=== PATIENT | male | born 1980 | race Caucasian/White ===

== ENCOUNTER → 2016-06-22 | Outpatient (CLI) | payer OTHER ==
--- NOTE | 2016-06-22 16:04 | REP ---
Clinical: Pain . Technique: AP, lateral, bilateral oblique views of the right elbow. Findings: No acute fracture or dislocation is appreciated. Joint spaces and surrounding soft tissues appear normal. Lateral view demonstrates normal positioning to the anterior and posterior fat pads without evidence for effusion/hemarthrosis. No subcutaneous emphysema or foreign body identified. Impression: Normal right elbow radiographs. Signed by Jose Maria Chatman MD 06/22/2016 03:56 P
== END ==
LOC: M ADAMS 15:37
PROVIDERS: ATTEND Physician Assistant
DX: M25.521 Pain in right elbow (principal)

== ENCOUNTER → 2016-12-08 | Outpatient (CLI) | payer OTHER ==
--- NOTE | 2016-12-08 09:14 | REP ---
Clinical: Right shoulder pain. Technique: Internal rotation, external rotation, and Y view. Findings: Mild age-related changes at the acromioclavicular joint are appreciated. There appears to be a subtle subacute fracture of the mid clavicular shaft which requires correlation. The glenohumeral joint appears intact and normal. The subacromial space is normal. No periarticular calcifications are identified. Impression: 1. Nondisplaced fracture of the mid clavicular shaft of indeterminate age requires correlation and possibly related to patient's pain. 2. Mild degenerative changes at the acromioclavicular joint. Signed by Jose Maria Chatman MD 12/08/2016 09:06 A
--- NOTE | 2016-12-08 09:18 | REP ---
Clinical: Cervical. Technique: AP lateral open mouth views of the cervical spine. Findings: Alignment and lordosis maintained. No acute fracture / compression injury or subluxation. Age-related changes are appreciated without significant degenerative disc osteophyte complex by radiographic evaluation. Impression: Relatively normal, age-appropriate examination. If the patient remains symptomatic consider MRI for further investigation. Signed by Jose Maria Chatman MD 12/08/2016 09:10 A
== END ==
LOC: M ADAMS 08:36
PROVIDERS: ATTEND Physician Assistant Medical
DX: S42.024A Nondisplaced fracture of shaft of right clavicle, initial encounter for closed fracture (principal); X58.XXXA Exposure to other specified factors, initial encounter; Y93.9 Activity, unspecified; Y92.9 Unspecified place or not applicable; Y99.8 Other external cause status; M54.2 Cervicalgia

== ENCOUNTER → 2018-02-18 | Outpatient (CLI) | payer OTHER | LOC: M RAD 12:13 | DX: L03.311 Cellulitis of abdominal wall (principal) | CPT/HCPCS: 76705 ==

== ENCOUNTER → 2018-04-12 | Outpatient (CLI) | payer OTHER ==
[2018-04-12 12:57] LABS: HEMATOCRIT 43.8 % (42.0-52.0); HEMOGLOBIN 14.6 g/dl (13.5-17.5); MEAN CORPUSCULAR HEMOGLOBIN 30.2 pg (27.0-33.0); MEAN CORPUSCULAR HGB CONC 33.3 g/dl (32.0-36.5); MEAN CORPUSCULAR VOLUME 90.5 fl (80.0-96.0); PLATELET COUNT, AUTOMATED 301 10^3/uL (150-450); RED BLOOD COUNT 4.84 10^6/uL (4.30-6.10); WHITE BLOOD COUNT 6.8 10^3/uL (4.0-10.0)
[2018-04-12 13:45] LABS: ALBUMIN 4.1 GM/DL (3.2-5.2); ALT/SGPT 64 U/L (12-78); BILIRUBIN,TOTAL 0.9 MG/DL (0.2-1.0); BLOOD UREA NITROGEN 13 MG/DL (7-18); CALCIUM LEVEL 9.4 MG/DL (8.5-10.1); CARBON DIOXIDE LEVEL 25 MEQ/L (21-32); CHLORIDE LEVEL 104 MEQ/L (98-107); CREATININE FOR GFR 0.95 MG/DL (0.70-1.30); GLOMERULAR FILTRATION RATE > 60.0 (>60); GLUCOSE, FASTING 90 MG/DL (70-100); POTASSIUM SERUM 4.7 MEQ/L (3.5-5.1); SODIUM LEVEL 138 MEQ/L (136-145); TOTAL PROTEIN 7.3 GM/DL (6.4-8.2)
== END ==
LOC: M LABDRWAD 10:49
PROVIDERS: ATTEND Nurse Practitioner Family
DX: F34.1 Dysthymic disorder (principal)

== ENCOUNTER → 2019-01-16 | Outpatient (CLI) | payer OTHER ==
--- NOTE | 2019-01-16 11:27 | REP ---
Two-view chest: 01/16/2019. Indication: Cough. Comparison: None. Findings: The lungs are clear. There is no pleural effusion or pneumothorax. Cardiac silhouette is unremarkable. Impression: Clear lungs. Electronically Signed by Mahamed Orellana DO 01/16/2019 11:18 A
== END ==
LOC: M ADAMS 09:26
PROVIDERS: ATTEND Family Medicine
DX: R05 Cough (principal)

== ENCOUNTER → 2019-02-22 | Outpatient (REF) | payer OTHER ==
[2019-02-22 12:26] LABS: BLOOD UREA NITROGEN 12 MG/DL (7-18); CARBON DIOXIDE LEVEL 27 MEQ/L (21-32); CHLORIDE LEVEL 108 MEQ/L (98-107); CREATININE FOR GFR 0.89 MG/DL (0.70-1.30); GLOMERULAR FILTRATION RATE > 60.0 (>60); GLUCOSE, FASTING 87 MG/DL (70-100); MAGNESIUM LEVEL 2.2 MG/DL (1.8-2.4); POTASSIUM SERUM 4.3 MEQ/L (3.5-5.1); SODIUM LEVEL 141 MEQ/L (136-145)
== END ==
LOC: M SFHCPLAZ 08:35
PROVIDERS: ATTEND Physician Assistant
DX: M62.838 Other muscle spasm (principal)

== ENCOUNTER 2020-01-29 12:24 | Inpatient (IN) | payer MEDICAID, OTHER ==
[~2020-01-29] VITALS: Ht 185.4 cm; Wt 135.2 kg
[2020-01-29] MEDS ORDERED: VENTAER INH (12:35)
[2020-01-29] MEDS ORDERED: SERT-138 PO (12:35)
[2020-01-29] MEDS ORDERED: OMEP-221 PO (12:35)
[2020-01-29 13:39] LABS: HEMATOCRIT 42.4 % (42.0-52.0); HEMOGLOBIN 13.9 g/dl (13.5-17.5); MEAN CORPUSCULAR HEMOGLOBIN 31.3 pg (27.0-33.0); MEAN CORPUSCULAR HGB CONC 32.8 g/dl (32.0-36.5); MEAN CORPUSCULAR VOLUME 95.5 fl (80.0-96.0); PLATELET COUNT, AUTOMATED 289 10^3/uL (150-450); RED BLOOD COUNT 4.44 10^6/uL (4.30-6.10); WHITE BLOOD COUNT 8.8 10^3/uL (4.0-10.0)
[2020-01-29 15:38] LABS: ACETAMINOPHEN LEVEL < 2.0 UG/ML (10.0-30.0); ALBUMIN 4.2 GM/DL (3.2-5.2); ALT/SGPT 116 U/L (12-78); BILIRUBIN,DIRECT 0.1 MG/DL (0.0-0.2); BILIRUBIN,TOTAL 0.5 MG/DL (0.2-1.0); BLOOD UREA NITROGEN 17 MG/DL (7-18); CALCIUM LEVEL 9.3 MG/DL (8.5-10.1); CARBON DIOXIDE LEVEL 23 MEQ/L (21-32); CHLORIDE LEVEL 111 MEQ/L (98-107); CREATININE FOR GFR 0.96 MG/DL (0.70-1.30); ETHYL ALCOHOL (ETHANOL) < 0.003 % (0.000-0.010); GLOMERULAR FILTRATION RATE > 60.0 (>60); GLUCOSE, FASTING 166 MG/DL (70-100); POTASSIUM SERUM 3.7 MEQ/L (3.5-5.1); SALICYLATE LEVEL 3.1 MG/DL (5.0-30.0); SODIUM LEVEL 142 MEQ/L (136-145); THYROID STIMULATING HORMONE 0.814 uIU/ML (0.358-3.740); TOTAL PROTEIN 7.6 GM/DL (6.4-8.2)
[2020-01-29 16:13] LABS: AMPHETAMINES LEVEL URINE NEGATIVE (NEGATIVE); BARBITURATES URINE NEGATIVE (NEGATIVE); BENZODIAZEPINES URINE NEGATIVE (NEGATIVE); CANNABINOIDS URINE POSITIVE (NEGATIVE); COCAINE METABOLITE URINE NEGATIVE (NEGATIVE); METHADONE URINE NEGATIVE (NEGATIVE); OPIATES URINE NEGATIVE (NEGATIVE); PHENCYCLIDINE URINE NEGATIVE (NEGATIVE)
[2020-01-29] MEDS ORDERED: OLANZapine ORAL DISINTEGRATING TAB 5MG PO PRN (18:00)
[2020-01-29] MEDS ORDERED: ACETAMINOPHEN TAB 650MG DOSE (2X325MG) PO PRN (18:00)
[2020-01-29] MEDS ORDERED: MOM 30ML SUSPENSION UDC PO PRN (18:00)
[2020-01-29] MEDS ORDERED: ALBUTEROL 90 MCG/ACT 8GM HFA INHALER INH PRN (18:00)
[2020-01-29] MEDS ORDERED: MAALOX 30 ML SUSP *UDC PO PRN (18:00)
[2020-01-29] MEDS ORDERED: traZODone 50 MG TAB PO PRN (18:00)
--- NOTE | 2020-01-29 19:45 | ECGEPIP ---
[facility] - ED Test Date: 2020-01-29 Pat Name: MISBAH GARRIDO Department: Room: - Gender: Male Business Management Analyst: SAIRA : 1980 Requested By: Michelle Cleaning Order Number: [id number] Reading MD: Kenyatta Machado Measurements Intervals [place] Rate: 88 P: 56 TX: 152 QRS: 19 QRSD: 97 T: 21 QT: 356 QTc: 432 Interpretive Statements SINUS RHYTHM WITH SINUS ARRHYTHMIA NO PRIOR Electronically Signed on 01-29-2020 19:44:52 EST by Kenyatta Machado
[2020-01-29 21:49] VITALS: BP 170/120
[2020-01-29] MEDS ORDERED: **hydrALAZINE** 10 MG TAB PO STA (22:21)
[2020-01-29 23:01] VITALS: BP 178/116
[2020-01-29] MEDS ORDERED: OLAN5ZYD PO (23:23)
[2020-01-29] MEDS ORDERED: AMLO25TA PO (23:23)
[2020-01-29] MEDS ORDERED: LISI2.5T2 PO (23:23)
[2020-01-29] MEDS ORDERED: LISINOPRIL *2.5 MG* TAB PO SCH (23:30)
[2020-01-29 23:43] VITALS: BP 162/96
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
[2020-01-30] MEDS ORDERED: SERTRALINE 100 MG TAB PO SCH (09:00)
[2020-01-30] MEDS ORDERED: NICOTINE 21MG/24HR 1 EA TRANSDERMAL TD SCH (09:00)
[2020-01-30] MEDS ORDERED: NORV5TAB PO (16:30)
[2020-01-30] MEDS ORDERED: LISI-542 PO (16:30)
[2020-01-30] MEDS ORDERED: LISINOPRIL *2.5 MG* TAB PO SCH (21:00)
== END 2020-01-29 23:55 | disposition other institution (70) | DRG 751 ==
LOC: M ED 12:24 → M ED INP 17:47 → M PSY 21:40
PROVIDERS: ADMIT Psychiatry & Neurology Psychiatry; ATTEND Psychiatry & Neurology Psychiatry
DX: F29 Unspecified psychosis not due to a substance or known physiological condition (principal); F31.9 Bipolar disorder, unspecified; F17.210 Nicotine dependence, cigarettes, uncomplicated; F17.220 Nicotine dependence, chewing tobacco, uncomplicated; Z79.899 Other long term (current) drug therapy; Z91.018 Allergy to other foods; R03.0 Elevated blood-pressure reading, without diagnosis of hypertension

== ENCOUNTER 2020-01-29 22:56 | Observation (INO) | payer OTHER ==
[~2020-01-29] VITALS: Ht 185.4 cm; Wt 134.5 kg
[~2020-01-29 22:56] MED LIST: OMEP-221 PO; SERT-138 PO; VENTAER INH
--- NOTE | 2020-01-29 23:22 | HPEPDOC ---
[facility] Medical History & Physical Date of Admission Jan 29, 2020 Date of Service: Jan 29, 2020 Primary Care Physician: NIKITA NEELY PA-C Attending Physician: BERENICE BELTRAN MD History and Physical TIME OF SERVICE: 1055 PM REASON FOR CONSULT: Elevated blood pressure HISTORY OF PRESENT ILLNESS: This 39-year-old old gentleman presented to the ER yesterday requesting admission to [facility] to help him deal with his anger issues. This evening he was noted to have a blood pressure as high as 195/95 & 170/120 this evening, therefore, Dr. Lawler called requesting management of uncontrolled HTN. At the time of my evaluation, the patient denied having any chest pain, shortness of breath, dizziness, headaches, or any other acute complaints. He denied a prior knowledge of the diagnosis of hypertension but based on his recent office visit he was noted to have HTN. The patient felt that his HTN might be due to nicotine abuse, feeling angry, and gaining weight. Over the last few years, has gained over 120 pounds. REVIEW OF SYSTEMS: 12 point review of systems negative except as listed in HPI PAST MEDICAL/ SURGICAL HISTORY: Bipolar Disorder HTN DLPD Asthma Chronic back pain with history of nerve blocks Left knee arthroscopy SOCIAL HISTORY: He smokes tobacco products and uses THC products Hs hx of alcohol abuse drinks 3+ beers daily FAMILY HISTORY: Cancer Diabetes ALLERGIES: Please see below. HOME MEDICATIONS: Please see below. PHYSICAL EXAMINATION: Vital Signs Date Time Temp Pulse Resp B/P (MAP) Pulse Ox O2 Delivery O2 Flow Rate FiO2 01/30/20 00:00 97.2 97 18 152/90 (110) 97 Room Air GEN: obese / well developed/ NAD INTEGUMENT: not flushed/ not jaundice HEENT: lips acyanotic /mucus membranes moist and pink CVS: RRR/NMRG/ radial and dorsalis pedis pulses intact LUNGS: able to speak full sentences without stopping to take a breath / no coughing / lungs are clear to auscultation bilaterally on room air MSK/EXTREMITIES: NCAT / range of motion intact in all 4 extremities NEURO: CN 2-12 are grossly intact / speech is not dysarthric /gait normal PSYCH: alert and oriented to person place and time/ able to understand and follow all commands LABORATORY DATA: UDS taken in the ER was positive for THC 01/30/20 00:40 ASSESSMENT: is a 39-year-old with a history of bipolar disorder w depression, HTN, DLPD, asthma, will be transferred from [facility] to PCU for management of hypertensive urgency. PLAN: 1 .Hypertensive Urgency SBP 195 DPB 120 He received hydralazine, lisinopril and amlodipine in [facility] prior to transfer Plan: Despite being asymptomatic, I felt that the safest plan would be to transfer him to PCU for closer monitoring / amlodipine 2.5mg and lisinopril 2.5mg PO will aim for e first 2-4 hours with target BP of <160/100 / low salt diet / discussed the importance of cardiovascular exercise and calisthenics which will help him loose weigth and control his blood pressure / f/u CBC, CMP, UA, trop and EKG / he should f/u with his PCP for a work-up to r/o secondary causes of HTN and for sleep apnea screening 2. NN Anemia Plan: f/u retic #, Iron studies, B12 and folate 3. Transaminitis Plan: f/u Hep B&C / can f/u with PCP for liver US 4. DLP Plan: f/u lipid panel 5. Asthma Plan; albuterol PRN 6. Bipolar Disorder with MDD Plan: 1:1 sitter / sertraline and olanzapine 7. Tobacco abuse Plan: smoking cessation education 8. Alcohol abuse Plan: seizure precautions / fall precautions / Ativan per CIWA protocol/ Thi amine 100mg daily, Folic acid 1mg daily, MVI 9.Obesity BMI 39.1 complicates care Plan: f/u A1C, lipid panel / can f/u w PCP for sleep apnea screening DVT PROPHYLAXIS: SCDs DISPOSITION: back to [facility] after less than 2 midnight's stay Home Medications Scheduled Amlodipine Besylate (Norvasc) 5 Mg Tablet, 5 MG PO DAILY Lisinopril (Lisinopril) 5 Mg Tablet, 5 MG PO QAM Omeprazole (Omeprazole) 40 Mg Capsule.dr, 40 MG PO DAILY Sertraline HCl (Sertraline HCl) 100 Mg Tablet, 100 MG PO DAILY Scheduled PRN Albuterol Sulfate (Ventolin Hfa) 18 Gm Hfa.aer.ad, 2 PUFFS INH Q4H PRN for SHORTNESS OF BREATH Olanzapine (Olanzapine Odt) 5 Mg Tab.rapdis, 5 MG PO Q6HP PRN for ANXIETY/AGITATION Allergies Coded Allergies: Mushroom (Verified Allergy, Mild, rash, 01/29/20) A-FIB/CHADSVASC A-FIB History Current/History of A-Fib/PAF?: No Current PO Anticoag Therapy: BERENICE Araya MD Jan 29, 2020 23:22
[2020-01-29] MEDS ORDERED: OLAN5ZYD PO (23:23)
[2020-01-29] MEDS ORDERED: AMLO25TA PO (23:23)
[2020-01-29] MEDS ORDERED: LISI2.5T2 PO (23:23)
[2020-01-29] MEDS ORDERED: MAALOX 30 ML SUSP *UDC PO PRN (23:30)
[2020-01-29] MEDS ORDERED: MOM 30ML SUSPENSION UDC PO PRN (23:30)
[2020-01-29] MEDS ORDERED: ACETAMINOPHEN TAB 650MG DOSE (2X325MG) PO PRN (23:30)
[2020-01-30] VITALS (9 sets, daily range): BP systolic 148–172; BP diastolic 77–98
[2020-01-30 00:55] LABS: HEMATOCRIT 38.9 % (42.0-52.0); HEMOGLOBIN 12.5 g/dl (13.5-17.5); MEAN CORPUSCULAR HEMOGLOBIN 30.4 pg (27.0-33.0); MEAN CORPUSCULAR HGB CONC 32.1 g/dl (32.0-36.5); MEAN CORPUSCULAR VOLUME 94.6 fl (80.0-96.0); PLATELET COUNT, AUTOMATED 245 10^3/uL (150-450); RED BLOOD COUNT 4.11 10^6/uL (4.30-6.10); WHITE BLOOD COUNT 8.3 10^3/uL (4.0-10.0)
[2020-01-30 01:19] LABS: ALBUMIN 3.6 GM/DL (3.2-5.2); ALT/SGPT 100 U/L (12-78); BILIRUBIN,TOTAL 0.6 MG/DL (0.2-1.0); BLOOD UREA NITROGEN 15 MG/DL (7-18); CALCIUM LEVEL 8.9 MG/DL (8.5-10.1); CARBON DIOXIDE LEVEL 25 MEQ/L (21-32); CHLORIDE LEVEL 108 MEQ/L (98-107); CREATININE FOR GFR 0.81 MG/DL (0.70-1.30); GLOMERULAR FILTRATION RATE > 60.0 (>60); GLUCOSE, FASTING 95 MG/DL (70-100); NT-PRO BNP 96 PG/ML (<125); POTASSIUM SERUM 3.7 MEQ/L (3.5-5.1); SODIUM LEVEL 140 MEQ/L (136-145); TOTAL PROTEIN 6.6 GM/DL (6.4-8.2); TROPONIN I < 0.02 NG/ML (< 0.10)
[2020-01-30] MEDS ORDERED: ALBUTEROL 90 MCG/ACT 8GM HFA INHALER INH PRN (05:00)
[2020-01-30] MEDS ORDERED: OLANZapine ORAL DISINTEGRATING TAB 5MG PO PRN (05:00)
[2020-01-30 05:22] LABS: CHOLESTEROL LEVEL 225 MG/DL (<200); HDL CHOLESTEROL 36 MG/DL (>40); LDL CHOLESTEROL 163 MG/DL (<100); NON-HDL-C 189 MG/DL; TRIGLYCERIDES LEVEL 132 MG/DL (<150)
[2020-01-30 05:36] LABS: HEMOGLOBIN A1c 5.8 %
[2020-01-30 05:59] LABS: FERRITIN 123 NG/ML (26-388); IRON (FE) 102 UG/DL (65-175); PERCENT SATURATION 36.7 % (19.7-50.0); TOTAL IRON BINDING CAPACITY 278 UG/DL (250-450)
[2020-01-30] MEDS ORDERED: THIAMINE 100 MG TAB PO SCH (06:49)
[2020-01-30] MEDS ORDERED: LORazepam 2 MG TAB PO PRN (07:00)
[2020-01-30] MEDS ORDERED: FOLIC ACID 1 MG TAB PO SCH (09:00)
[2020-01-30] MEDS ORDERED: MULTIVITAMINS/MINERALS THERAP 1 TAB PO SCH (09:00)
[2020-01-30] MEDS ORDERED: OMEPRAZOLE 20 MG CAP PO SCH (09:00)
[2020-01-30] MEDS ORDERED: SERTRALINE 100 MG TAB PO SCH (09:00)
[2020-01-30] MEDS ORDERED: lisinopriL 5 MG TAB PO SCH (09:00)
[2020-01-30 09:49] LABS: VITAMIN B12 LEVEL 411 PG/ML (247-911)
[2020-01-30 10:00] LABS: HEPATITIS B SURFACE ANTIGEN NEGATIVE (NEGATIVE)
[2020-01-30 10:27] LABS: HEPATITIS C VIRUS ABY INDEX 0.1 INDEX (<0.8)
[2020-01-30 10:28] LABS: HEPATITIS B CORE ANTIBODY IGM NEGATIVE (NEGATIVE)
[2020-01-30 10:29] LABS: HEPATITIS A ANTIBODY IGM NEGATIVE (NEGATIVE)
--- NOTE | 2020-01-30 14:07 | ECGEPIP ---
[facility] Test Date: 2020-01-30 Pat Name: MISBAH GARRIDO Department: Room: [place] [address] Gender: Male Career Center Director: LUCIA : 1980 Requested By: BERENICE BELTRAN Order Number: [id number] Reading MD: Alex Valdez Measurements Intervals [place] Rate: 68 P: 41 GA: 156 QRS: 27 QRSD: 98 T: 8 QT: 395 QTc: 421 Interpretive Statements SINUS RHYTHM Electronically Signed on 01-30-2020 14:06:41 EST by Alex Valdez
[2020-01-30] MEDS ORDERED: NORV5TAB PO (16:30)
[2020-01-30] MEDS ORDERED: LISI-542 PO (16:30)
--- NOTE | 2020-01-30 16:39 | DS.PDOC ---
Discharge Summary General Date of Admission Jan 29, 2020 at 23:55 Date of Discharge 01/30/20 Attending Physician: Saige Gannon MD Discharge Summary HISTORY OF PRESENT ILLNESS: This 39-year-old old gentleman presented to the ER yesterday requesting admission to [facility] to help him deal with his anger issues. This evening he was noted to have a blood pressure as high as 195/95 & 170/120 this evening, therefore, Dr. Lawler called requesting management of uncontrolled HTN. At the time of my evaluation, the patient denied having any chest pain, shortness of breath, dizziness, headaches, or any other acute complaints. He denied a prior knowledge of the diagnosis of hypertension but based on his recent office visit he was noted to have HTN. The patient felt that his HTN might be due to nicotine abuse, feeling angry, and gaining weight. Over the last few years, has gained over 120 pounds. HOSPITAL COURSE: BP meds lisinopril and amlodipine switched to AM. He was also given one time dose amlodipine later in the day for slightly higher BP systolic of 170 mmHg. psychiatry was notified of better controlled BP and cleared to be discharged back to [facility]. At time of discharge, patient denied chest pain, shortness of breath, n/v/d, fevers, chills, headaches. PAST MEDICAL/ SURGICAL HISTORY: Bipolar Disorder HTN DLPD Asthma Chronic back pain with history of nerve blocks Left knee arthroscopy SOCIAL HISTORY: He smokes tobacco products and uses THC products Hs hx of alcohol abuse drinks 3+ beers daily FAMILY HISTORY: Cancer Diabetes ALLERGIES: Please see below. HOME MEDICATIONS: Please see below. PHYSICAL EXAMINATION: Vital Signs: Please see below GEN: obese / well developed/ NAD INTEGUMENT: not flushed/ not jaundice HEENT: lips acyanotic /mucus membranes moist and pink CVS: RRR/NMRG/ radial and dorsalis pedis pulses intact LUNGS: able to speak full sentences without stopping to take a breath / no coughing / lungs are clear to auscultation bilaterally on room air MSK/EXTREMITIES: NCAT / range of motion intact in all 4 extremities NEURO: CN 2-12 are grossly intact / speech is not dysarthric /gait normal PSYCH: alert and oriented to person place and time/ able to understand and follow all commands LABORATORY DATA: Please see below ASSESSMENT: is a 39-year-old with a history of bipolar disorder w depression, HTN, DLPD, asthma, will be transferred from [facility] to PCU for management of hypertensive urgency. PLAN: 1. Hypertensive Urgency. Resolved. -BP better improved. -Switched lisinopril and amlodipine to AM, increased dose of both to 5 mg PO daily. -Monitor regularly, low salt diet. -Suggest screening for secondary causes of HTN, including ESSENCE as o/p -Recommend wt loss. 2. NN Anemia -All studies wnl -F/u with PCP for further studies 3. Transaminitis -Suggest PCP f/u studies for Hep B&C -Consider liver US if patient's AST/ALT remain elevated 4. DLP -lipid studies elevated -Consider lifestyle changes, if does not work, statin 5. Asthma -Stable -albuterol PRN 6. Bipolar Disorder with MDD -1:1 sitter this admission -D/c to [facility] to continue care -sertraline and olanzapine 7. Tobacco abuse -smoking cessation education -Nicotine patch 8. Alcohol abuse -No s/s of alcohol withdrawl. seizure precautions 9.Obesity BMI 39.1 complicates care DISPOSITION: back to [facility] today TIME SPENT ON DISCHARGE: Greater than 30 minutes. Vital Signs/I&Os Vital Signs Date Time Temp Pulse Resp B/P (MAP) Pulse Ox O2 Delivery O2 Flow Rate FiO2 01/30/20 16:00 97.5 69 19 158/98 (118) 98 Room Air Laboratory Data Labs 24H Laboratory Tests 2 01/30/20 00:40: Reticulocyte # (auto) 55.8, Nucleated Red Blood Cells % (auto) 0.0, Percent Reticulocyte Count 1.4, Reticulocyte Hemoglobin Equivalent 37.3H, Anion Gap 7L, Glomerular Filtration Rate > 60.0, Estimated Mean Plasma Glucose 120H, Hemoglobin A1c 5.8, Calcium Level 8.9, Iron Level 102, Total Iron Binding Capacity 278, Transferrin % Saturation 36.7, Ferritin 123, Total Bilirubin 0.6, Aspartate Amino Transf (AST/SGOT) 80H, Alanine Aminotransferase (ALT/SGPT) 100H, Alkaline Phosphatase 64, Troponin I < 0.02, PE-Zjh-[id number]-Type Natriuretic Peptide 96, Total Protein 6.6, Albumin 3.6, Albumin/Globulin Ratio 1.2, Triglycerides Level 132, Total Cholesterol 225H, LDL Cholesterol 163H, Non-HDL Cholesterol (LDL + VLDL) 189, Total HDL Cholesterol 36L, Cholesterol/HDL Ratio 6.250H, Vitamin B12 Level 411, Folate 11.0, Hepatitis A IgM Antibody NEGATIVE, Hepatitis B Surface Antigen NEGATIVE, Hepatitis B Core IgM Antibody NEGATIVE, Hepatitis C Antibody Index 0.1 CBC/BMP Laboratory Tests 01/30/20 00:40 Discharge Medications Scheduled Amlodipine Besylate (Norvasc) 5 Mg Tablet, 5 MG PO DAILY Lisinopril (Lisinopril) 5 Mg Tablet, 5 MG PO QAM Omeprazole (Omeprazole) 40 Mg Capsule.dr, 40 MG PO DAILY, (Reported) Sertraline HCl (Sertraline HCl) 100 Mg Tablet, 100 MG PO DAILY, (Reported) Scheduled PRN Albuterol Sulfate (Ventolin Hfa) 18 Gm Hfa.aer.ad, 2 PUFFS INH Q4H PRN for SHORTNESS OF BREATH, (Reported) Olanzapine (Olanzapine Odt) 5 Mg Tab.rapdis, 5 MG PO Q6HP PRN for ANXIETY/AGITATION Allergies Coded Allergies: Mushroom (Verified Allergy, Mild, rash, 01/29/20) Saige Gannon MD Jan 30, 2020 16:39
[2020-01-30] MEDS ORDERED: LISINOPRIL *2.5 MG* TAB PO SCH (21:00)
--- NOTE | 2020-01-31 08:20 | MHCR ---
DATE OF CONSULTATION: 01/30/2020 CHIEF COMPLAINT: He has been behaving bizarrely. SUBJECTIVE: He is 39 years old. Apparently has a history of bipolar disorder, alcohol, and cannabis misuse, and was brought into the emergency room within the last 48 hours or so. Was admitted to inpatient psychiatry, but before he was seen by psychiatry, the psychiatrist there, was transferred to the hospitalist care after the hospitalist business applications manager had seen him for treatment of severe hypertension. Details of the circumstances of the patient coming to the hospital are per the emergency room report. He apparently had been noted to be acting bizarrely by his partner, Alyson Santos, and had gone to his primary care, [facility] in [place], and when there was wearing a headlamp and informed them that he always wanted to have access to flashlights. Per the report, the girlfriend stated that the patient had been acting somewhat bizarrely and out of character for about a week now, hanging his daughter's toys onto nails in the wall. Then started to cook night on one occasion, started washing the cool in the sink and then eat the food from the water. Was thought to be counting excessively and repeating his name. When the patient was admitted to the inpatient psychiatry unit, was noted to have very high blood pressures, 195/95, and then later on 170/120. Dr. Lawler requested the hospitalist see him, and given these concerns it was felt that he would better be treated on the medical, so was admitted to the progressive care unit (PCU), where he has been given hydralazine, lisinopril, amlodipine. I was informed by Dr. Gannon, hospitalist, the patient is now medically stable from their standpoint, and that they will continue following him at the inpatient psychiatry unit. Blood pressure this afternoon 158/98, pulse 69. PAST PSYCHIATRIC HISTORY: As indicated above, has a history of bipolar disorder apparently, but it is unclear if he is in any treatment. Does not appear to be so. MENTAL STATUS EXAMINATION: He is lying in bed, cooperative. No agitation. No psychomotor retardation. Somewhat tangential in his thoughts. He is coherent for relatively brief periods. Appears mildly anxious. His cognition is grossly intact. Judgment and insight are compromised. No overt evidence of any direct thoughts of any intentions of harming himself or anyone else. ASSESSMENT: 1. Unspecified psychotic disorder. 2. Bipolar disorder by history. 3. Consider bipolar type 1 disorder. 4. Alcohol use disorder. 5. Cannabis use disorder. 6. Hypertension. Had come to the inpatient mental health unit with psychosis. Had severe hypertension. Transferred to medicine. Seen by the hospitalist and now stabilized. Is mildly anxious. Tangential in thought and speech. Judgment and insight are compromised. RECOMMENDATIONS: He needs inpatient psychiatric hospitalization, further stabilization, and a schaeffer assessment, as he had been transferred to medicine so he could be seen by psychiatry (see Dr. Lawler's discharge summary). Hospitalist will continue to follow patient in the inpatient unit, particularly regarding hypertension. Thank you for the consult. If any questions, please call. LUZ MARIA
== END 2020-01-30 21:27 ==
LOC: INTOOBSV 23:55 → M PCU 23:55
PROVIDERS: ADMIT Internal Medicine; ATTEND Internal Medicine
DX: I16.0 Hypertensive urgency (principal); E78.49 Other hyperlipidemia; I10 Essential (primary) hypertension; F17.218 Nicotine dependence, cigarettes, with other nicotine-induced disorders; Z79.899 Other long term (current) drug therapy; F31.9 Bipolar disorder, unspecified; J45.909 Unspecified asthma, uncomplicated; D64.9 Anemia, unspecified; M54.5 Low back pain; F12.10 Cannabis abuse, uncomplicated; F10.10 Alcohol abuse, uncomplicated; R74.01 Elevation of levels of liver transaminase levels; E66.9 Obesity, unspecified; Z91.018 Allergy to other foods

== ENCOUNTER 2020-01-30 12:26 | Inpatient (IN) | payer MEDICAID, OTHER ==
[~2020-01-30] VITALS: Ht 185.4 cm; Wt 134.5 kg
[~2020-01-30 12:26] MED LIST changes: +AMLO25TA PO; +LISI2.5T2 PO; +OLAN5ZYD PO
[2020-01-30] MEDS ORDERED: NORV5TAB PO (16:30)
[2020-01-30] MEDS ORDERED: LISI-542 PO (16:30)
[2020-01-30] MEDS ORDERED: LORazepam 2 MG TAB PO PRN (19:00)
[2020-01-30] MEDS ORDERED: MOM 30ML SUSPENSION UDC PO PRN (19:00)
[2020-01-30] MEDS ORDERED: MAALOX 30 ML SUSP *UDC PO PRN (19:00)
[2020-01-30 22:00] VITALS: BP 154/90
[2020-01-30] MEDS: ALBUTEROL 90 MCG/ACT 8GM HFA INHALER INH PRN (23:00)
[2020-01-30] MEDS: traZODone 50 MG TAB PO PRN (23:01)
[2020-01-30] MEDS: IBUPROFEN 400 MG TAB PO PRN (23:02)
[2020-01-30] MEDS: OLANZapine ORAL DISINTEGRATING TAB 5MG PO PRN (23:03)
[2020-01-30] MEDS: THIAMINE 100 MG TAB PO SCH (23:03)
[2020-01-31 06:00] VITALS: BP 150/78
[2020-01-31 07:08] VITALS: BP 150/78
[2020-01-31] MEDS: OLANZapine ORAL DISINTEGRATING TAB 5MG PO PRN ×2 (08:35→15:04)
[2020-01-31] MEDS: FOLIC ACID 1 MG TAB PO SCH (08:35)
[2020-01-31] MEDS: MULTIVITAMINS/MINERALS THERAP 1 TAB PO SCH (08:35)
[2020-01-31] MEDS: SERTRALINE 100 MG TAB PO SCH (08:35)
[2020-01-31] MEDS: THIAMINE 100 MG TAB PO SCH ×2 (08:35→20:49)
[2020-01-31] MEDS: OMEPRAZOLE 20 MG CAP PO SCH (08:35)
[2020-01-31] MEDS: amLODIPine 5 MG TAB PO SCH (08:39)
[2020-01-31] MEDS: IBUPROFEN 400 MG TAB PO PRN ×2 (08:39→18:53)
[2020-01-31] MEDS: lisinopriL 5 MG TAB PO SCH (08:40)
[2020-01-31 10:16] VITALS: BP 140/82
--- NOTE | 2020-01-31 11:20 | IPNPDOC ---
Text Note Date of Service The patient was seen on 01/31/20. NOTE Hospitalist progress note: I had come to evaluate patient today at 1040AM; however patient was currently in group therapy. Will re-attempt later today. VS,Fishbone, I+O VS, Fishbone, I+O Vital Signs Date Time Temp Pulse Resp B/P (MAP) Pulse Ox O2 Delivery O2 Flow Rate FiO2 01/31/20 10:16 140/82 (101) 01/31/20 08:39 106 01/31/20 07:08 98.0 18 98 Room Air JEEVAN COYLE MD Jan 31, 2020 11:20
[2020-01-31] MEDS ORDERED: NICOTINE 21MG/24HR 1 EA TRANSDERMAL TD PRN (14:45)
[2020-01-31] MEDS: ALBUTEROL 90 MCG/ACT 8GM HFA INHALER INH PRN (15:04)
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
--- NOTE | 2020-01-31 15:34 | HPEPDOC ---
[facility] Medical History & Physical Date of Admission Jan 31, 2020 Date of Service: Jan 31, 2020 History and Physical Chief complaint: Presented to [facility] from inpatient stay at [facility] for History of present illness: Patient is a39 year old male with a PMHx of HTN, DLP, Asthma, Chronic back pain (2/ history of nerve blocks), Bipolar disorder who was admitted to the inpatient mental health unit under the care of psychiatry. Hospitalist service was called for medical management. Patient was originally admitted to [facility] on 01/28 for suicidal ideation / agitation. On 01/28 evening patient was found to have an elevated BP and was transitioned to the inpatient hospital stay for observation. His SBP at that time was noted to be ~200s. Patient had received hydralazine PO by Psychiatry and Hospitalist service had resumed his Amlodipine and Lisinopril PO. Patient had his BP controlled by 01/29 and was transitioned back to [facility] for continued management. Currently patient denies any headache, nausea, vomiting, abdominal pain, chest pain, SOB, cough, palpitations, constipation, diarrhea or urinary discomfort. Reports no change of appetite, but reports weight gain. Past Medical History: HTN, DLP, Asthma, Chronic back pain (2/ history of nerve blocks), Bipolar disorder Past Surgical History: Left knee arthroscopy Allergies: See below Medications: See below Family History: - Family history of malignancy Social History: - Patient reports that he isnt active smoker for 25 years at less than 0.5 PPD; reports the social use of alcohol and reports occasional use of marijuana - Denies recent travel or sick contacts - Lives with girlfriend Review of Systems: 10 point review of systems complete, all negative otherwise stated in HPI Physical exam: - Vitals: BP [162/96], HR [88], RR [16], Sat [98%RA], Temp [97.1F] - General: Lying in bed, Speaking in full sentences, AAOx3 - HEENT: NC, AT, PERRLA - CVS: RRR, +S1S2 - Lungs: Fair air entry bilaterally, No appreciable wheezing / rales / rhonchi - Abdomen: Soft, Non-distended, Non-tender - Extremities: No lower extremity edema, No calf tenderness - Neuro: No focal motor or sensory deficit - Skin: No visible rashes Assessment and Plan: Anxiety / Depression / Anger issues - History of bipolar disorder - Admitted to the [facility] under the care of psychiatry - Currently being managed by psychiatry HTN - BP well controlled - c/w Lisinopril and Amlodipine; will add holding parameters DLP - Currently not on medications Asthma - No evidence of exacerbation - c/w inhaled therapy as ordered Chronic back pain - Reported history of nerve blocks - c/w Tylenol PRN Obesity - BMI of 39.1 - Complicating medical care Nicotine dependence - c/w Nicotine patch - Advised smoking cessation GERD - c/w Omeprazole DVT prophylaxis - Will c/w early ambulation Supply Chain Manager was present throughout the duration of this history and physical examination Thank you for this consultation; hospitalist service will sign off; please re- consult as needed Vital Signs Vital Signs Date Time Temp Pulse Resp B/P (MAP) Pulse Ox O2 Delivery O2 Flow Rate FiO2 01/31/20 10:16 140/82 (101) 01/31/20 08:39 106 01/31/20 07:08 98.0 18 98 Room Air Home Medications Scheduled Amlodipine Besylate (Norvasc) 5 Mg Tablet, 5 MG PO DAILY Lisinopril (Lisinopril) 5 Mg Tablet, 5 MG PO QAM Omeprazole (Omeprazole) 40 Mg Capsule.dr, 40 MG PO DAILY Sertraline HCl (Sertraline HCl) 100 Mg Tablet, 100 MG PO DAILY Scheduled PRN Albuterol Sulfate (Ventolin Hfa) 18 Gm Hfa.aer.ad, 2 PUFFS INH Q4H PRN for SHORTNESS OF BREATH Olanzapine (Olanzapine Odt) 5 Mg Tab.rapdis, 5 MG PO Q6HP PRN for ANXIETY/AGITATION Allergies Coded Allergies: Mushroom (Verified Allergy, Mild, rash, 01/29/20) JEEVAN COYLE MD Jan 31, 2020 15:34
[2020-01-31 18:00] VITALS: BP 150/73
[2020-01-31 18:29] VITALS: BP 150/73
[2020-01-31] MEDS: OLANZapine 5 MG TAB PO SCH (20:49)
[2020-01-31] MEDS: traZODone 50 MG TAB PO PRN (20:49)
[2020-01-31 21:54] VITALS: BP 130/60
[2020-02-01 06:05] VITALS: BP 160/81
[2020-02-01] MEDS: ALBUTEROL 90 MCG/ACT 8GM HFA INHALER INH PRN ×2 (06:30→15:31)
[2020-02-01] MEDS: OLANZapine 5 MG TAB PO SCH ×2 (08:29→20:10)
[2020-02-01] MEDS: MULTIVITAMINS/MINERALS THERAP 1 TAB PO SCH (08:29)
[2020-02-01] MEDS: FOLIC ACID 1 MG TAB PO SCH (08:29)
[2020-02-01] MEDS: amLODIPine 5 MG TAB PO SCH (08:29)
[2020-02-01] MEDS: lisinopriL 5 MG TAB PO SCH (08:30)
[2020-02-01] MEDS: THIAMINE 100 MG TAB PO SCH ×2 (08:30→20:10)
[2020-02-01] MEDS: OMEPRAZOLE 20 MG CAP PO SCH (08:30)
[2020-02-01] MEDS: SERTRALINE 100 MG TAB PO SCH (08:30)
[2020-02-01 18:31] VITALS: BP 142/88
[2020-02-01] MEDS: LORATADINE 10 MG TAB PO SCH (20:10)
[2020-02-01] MEDS: traZODone 50 MG TAB PO PRN (20:10)
[2020-02-01 20:30] VITALS: BP 130/60
[2020-02-01] MEDS: IBUPROFEN 400 MG TAB PO PRN (21:21)
[2020-02-02 06:23] VITALS: BP 162/98
[2020-02-02] MEDS: amLODIPine 5 MG TAB PO SCH (06:27)
[2020-02-02] MEDS: lisinopriL 5 MG TAB PO SCH (06:28)
[2020-02-02] MEDS: LURASIDONE 20 MG TAB (LATUDA) PO SCH (08:52)
[2020-02-02] MEDS ORDERED: NEOSPORIN TOP OINT 15GM TOP SCH (09:00)
[2020-02-02] MEDS: SERTRALINE 100 MG TAB PO SCH (09:26)
[2020-02-02] MEDS: MULTIVITAMINS/MINERALS THERAP 1 TAB PO SCH (09:27)
[2020-02-02] MEDS: THIAMINE 100 MG TAB PO SCH (09:27)
[2020-02-02] MEDS: OLANZapine 5 MG TAB PO SCH ×2 (09:27→20:12)
[2020-02-02] MEDS: OMEPRAZOLE 20 MG CAP PO SCH (09:27)
[2020-02-02] MEDS: FOLIC ACID 1 MG TAB PO SCH (09:27)
--- NOTE | 2020-02-02 13:14 | MHIPNPDOC ---
[facility] Progress Note Progress Note DATE OF SERVICE: 02/02/20 Patient is a 39 year old Single, Domiciled, Male who presents to [facility] for bizarre and delusional and psychotic behaviors. According to the ED Report: patient is a 39 -year-old , male, who was seen by his PCP and his PCP recommended that he be psychiatrically evaluated. Patient was observed as bizarre and having tangential and disorganized speech pattern during his appointment. He arrived to his appointment wearing a head lamp stating that he like to always have access to flashlights. His girlfriend Alyson provided collateral stating that one week prior he had a change in his mental status. He was acting out of character, he was nailing his daughters toys on the wall. He was observed to be making dinner, wash the cool that dinner was in adn then began to eat the food from the water. Counting excessively and repeating his name over and over. Reports that patient is frequently angry. VITAL SIGNS: See below. NEW TEST RESULTS: CURRENT MEDICATIONS: See below. MENTAL STATUS EXAMINATION: Patient is a 39 year old Single, Domiciled, Male who presents to [facility] for bizarre and delusional and psychotic behaviors. He is dressed appropriately, he smiles on approach, calm and cooperative in the interview. He is not observed with agitation or retardation. Speech: Is less pressure, less tangential and normal rate tone and volume. Language skills are intact Thought processes including: linear and goal oriented Thought content: reports less racing thoughts, no depression no suicidal ideation Abstract reasoning, and computation: good Description of associations: none observed, patient denies Description of abnormal or psychotic thoughts: none observed, patient denies Judgment: fair Insight: good Orientation: alert and oriented to person, place and time Recent and remote memory: intact Attention span and concentration: improved Language: expansive Fund of knowledge: average Mood: Euthymic. Affect: Congruent DIAGNOSES: Bipolar I Disorder, Recurrent with mixed features Anxiety Disorder Hypertension GERD Cannabis Use Disorder Tobacco Use Disorder Chronic Back Pain ASSESSMENT: Patient reports that he is feeling "better" states that he didn't realize that his aggression and agitated was scaring his dog and his family. States that medications are effective, states "I have less racing thoughts" Patient affect and demeanor is relaxed and he was less tangential and pressured in his speech today. It does appear that he is stabilizing. He is attending groups and pleasant in the milieu. MANAGEMENT PLAN: Discharge on Wednesday TIME SPENT: 25 minutes. Vital Signs Vital Signs Date Time Temp Pulse Resp B/P (MAP) Pulse Ox O2 Delivery O2 Flow Rate FiO2 02/02/20 06:28 162/98 02/02/20 06:27 77 02/02/20 06:23 97.2 18 02/01/20 06:05 100 Room Air Current Medications Current Medications Medications (Trade) Dose Ordered Sig/Rosio Route PRN Reason Start Time Stop Time Status Last Admin Dose Admin Al Hydrox/Mg Hydrox/Simethicone (Mylanta) 30 ml Q4HP PRN PO HEARTBURN/INDIGESTION 01/30/20 19:00 Albuterol Sulfate (Proventil, Ventolin Hfa) 2 puff Q4HP PRN INH SHORTNESS OF BREATH 01/30/20 19:00 02/01/20 15:31 Amlodipine Besylate (Norvasc) 5 mg DAILY PO 01/31/20 09:00 02/02/20 06:27 Folic Acid (Folic Acid) 1 mg DAILY PO 01/31/20 09:00 02/02/20 09:27 Ibuprofen (Advil) 400 mg Q6HP PRN PO PAIN 01/30/20 19:00 02/01/20 21:21 Lisinopril (Prinivil) 5 mg QAM PO 01/31/20 09:00 02/02/20 06:28 Loratadine (Claritin) 10 mg QHS PO 02/01/20 21:00 02/01/20 20:10 Lorazepam (Ativan) 2 mg ASDIRECTED PRN PO SEE PROTOCOL 01/30/20 19:00 01/31/20 18:34 Lurasidone HCl (Latuda) 20 mg DAILY@08 PO 02/02/20 08:00 02/02/20 08:52 Magnesium Hydroxide (Milk Of Magnesia) 30 ml DAILYPRN PRN PO CONSTIPATION 01/30/20 19:00 Multivitamins (Theragram-M) 1 tab DAILY PO 01/31/20 09:00 02/02/20 09:27 Neomycin/ Polymyxin/ Bacitracin (Neosporin) Apply to affected a... TID TOP 02/02/20 09:00 Cancel Neomycin/ Polymyxin/ Bacitracin (Neosporin) Apply to affected a... TID TOP 02/02/20 16:00 Nicotine (Nicoderm Cq 21mg) 1 patch DAILYPRN PRN TD NICOTINE WITHDRAWAL 01/31/20 14:45 01/31/20 15:05 Olanzapine (ZyPREXA ZYDIS) 5 mg Q4HP PRN PO AGITATION 01/30/20 19:00 01/31/20 15:04 Olanzapine (ZyPREXA) 5 mg BID PO 01/31/20 21:00 02/02/20 09:27 Omeprazole (PriLOSEC) 40 mg DAILY PO 01/31/20 09:00 02/02/20 09:27 Sertraline HCl (Zoloft) 100 mg DAILY PO 01/31/20 09:00 02/02/20 09:26 Thiamine HCl (Thiamine HCl) 100 mg BID PO 01/30/20 21:00 02/02/20 20:59 02/02/20 09:27 Trazodone HCl (Desyrel) 50 mg QHSP PRN PO INSOMNIA 01/30/20 19:00 02/01/20 20:10 Allergies Coded Allergies: Mushroom (Verified Allergy, Mild, rash, 01/29/20) MERRY SCHNEIDER NP Feb 02, 2020 13:14
[2020-02-02] MEDS: ALBUTEROL 90 MCG/ACT 8GM HFA INHALER INH PRN ×2 (13:32→22:20)
[2020-02-02] MEDS: IBUPROFEN 400 MG TAB PO PRN (15:50)
[2020-02-02] MEDS: NEOSPORIN TOP OINT 15GM TOP SCH ×2 (15:50→20:12)
[2020-02-02 18:53] VITALS: BP 148/90
[2020-02-02] MEDS: LORATADINE 10 MG TAB PO SCH (20:12)
[2020-02-03] MEDS: traZODone 50 MG TAB PO PRN ×2 (00:12→21:20)
[2020-02-03 00:14] VITALS: BP 145/90
[2020-02-03] MEDS: OLANZapine ORAL DISINTEGRATING TAB 5MG PO PRN ×3 (00:14→21:20)
[2020-02-03] MEDS ORDERED: LORazepam 2 MG TAB PO ONE (06:30)
[2020-02-03 07:06] VITALS: BP 156/112
[2020-02-03] MEDS: LURASIDONE 20 MG TAB (LATUDA) PO SCH (08:53)
[2020-02-03] MEDS: amLODIPine 5 MG TAB PO SCH (09:32)
[2020-02-03] MEDS: lisinopriL 5 MG TAB PO SCH (09:32)
[2020-02-03] MEDS: OLANZapine 5 MG TAB PO SCH ×2 (09:32→20:13)
[2020-02-03] MEDS: NEOSPORIN TOP OINT 15GM TOP SCH ×3 (09:32→21:20)
[2020-02-03] MEDS: SERTRALINE 100 MG TAB PO SCH (09:32)
[2020-02-03] MEDS: OMEPRAZOLE 20 MG CAP PO SCH (09:33)
[2020-02-03] MEDS: IBUPROFEN 400 MG TAB PO PRN ×2 (15:04→21:21)
[2020-02-03 18:24] VITALS: BP 146/87
[2020-02-03] MEDS: LORATADINE 10 MG TAB PO SCH (20:13)
[2020-02-03] MEDS ORDERED: OLANZapine ORAL DISINTEGRATING TAB 5MG PO ONE (23:15)
[2020-02-03] MEDS ORDERED: traZODone 50 MG TAB PO ONE (23:15)
[2020-02-04] MEDS: LURASIDONE 20 MG TAB (LATUDA) PO SCH (07:06)
[2020-02-04 07:11] VITALS: BP 144/53
[2020-02-04] MEDS: amLODIPine 5 MG TAB PO SCH (08:09)
[2020-02-04] MEDS: SERTRALINE 100 MG TAB PO SCH (08:09)
[2020-02-04] MEDS: lisinopriL 5 MG TAB PO SCH (08:09)
[2020-02-04] MEDS: OMEPRAZOLE 20 MG CAP PO SCH (08:10)
[2020-02-04] MEDS: OLANZapine 5 MG TAB PO SCH (08:10)
[2020-02-04] MEDS: NEOSPORIN TOP OINT 15GM TOP SCH ×3 (08:11→20:18)
[2020-02-04] MEDS: IBUPROFEN 400 MG TAB PO PRN (12:40)
[2020-02-04] MEDS: OLANZapine ORAL DISINTEGRATING TAB 5MG PO PRN (15:09)
[2020-02-04 18:55] VITALS: BP 136/78
[2020-02-04] MEDS: LORATADINE 10 MG TAB PO SCH (20:18)
[2020-02-04] MEDS ORDERED: traZODone 50 MG TAB PO PRN (21:00)
[2020-02-04] MEDS ORDERED: OLANZapine ORAL DISINTEGRATING TAB 5MG PO SCH (21:00)
[2020-02-05] MEDS: OLANZapine ORAL DISINTEGRATING TAB 5MG PO PRN (03:04)
[2020-02-05] MEDS: ALBUTEROL 90 MCG/ACT 8GM HFA INHALER INH PRN (06:18)
[2020-02-05 06:43] VITALS: BP 158/92
[2020-02-05] MEDS: LURASIDONE 20 MG TAB (LATUDA) PO SCH (07:51)
[2020-02-05] MEDS: OMEPRAZOLE 20 MG CAP PO SCH (07:58)
[2020-02-05] MEDS: SERTRALINE 100 MG TAB PO SCH (07:58)
[2020-02-05] MEDS: OLANZapine 5 MG TAB PO SCH (07:58)
[2020-02-05] MEDS: NEOSPORIN TOP OINT 15GM TOP SCH (07:58)
[2020-02-05 07:59] VITALS: BP 168/96
[2020-02-05] MEDS: amLODIPine 5 MG TAB PO SCH (07:59)
[2020-02-05] MEDS: lisinopriL 5 MG TAB PO SCH (08:00)
[2020-02-05] MEDS ORDERED: NORV5TAB PO (09:33)
[2020-02-05] MEDS ORDERED: LISI-542 PO (09:33)
[2020-02-05] MEDS ORDERED: CLAR10TA7 PO (09:33)
[2020-02-05] MEDS ORDERED: LATU20TA PO (09:33)
[2020-02-05] MEDS ORDERED: OLAN5TAB PO ×2 (09:33)
--- NOTE | 2020-02-05 09:41 | MHIPNPDOC ---
[facility] Progress Note Progress Note DATE OF SERVICE: 02/01/20 HISTORY: Patient is a 39 year old Single, Domiciled, Male who presents to [facility] for bizarre and delusional and psychotic behaviors. According to the ED Report: patient is a 39 -year-old , male, who was seen by his PCP and his PCP recommended that he be psychiatrically evaluated. Patient was observed as bizarre and having tangential and disorganized speech pattern during his appointment. He arrived to his appointment wearing a head lamp stating that he like to always have access to flashlights. His girlfriend Alyson provided collateral stating that one week prior he had a change in his mental status. He was acting out of character, he was nailing his daughters toys on the wall. He was observed to be making dinner, wash the cool that dinner was in adn then began to eat the food from the water. Counting excessively and repeating his name over and over. Reports that patient is frequently angry. VITAL SIGNS: See below. NEW TEST RESULTS: CURRENT MEDICATIONS: See below. MENTAL STATUS EXAMINATION: Patient is a 39 year old Single, Domiciled, Male who presents to [facility] for bizarre and delusional and psychotic behaviors. He is dressed appropriately, he smiles on approach, calm and cooperative in the interview. He is not observed with agitation or retardation. Speech: Is less pressure, less tangential and normal rate tone and volume. Language skills are intact Thought processes including: linear and goal oriented Thought content: reports less racing thoughts, no depression no suicidal ideation Abstract reasoning, and computation: good Description of associations: none observed, patient denies Description of abnormal or psychotic thoughts: none observed, patient denies Judgment: fair Insight: good Orientation: alert and oriented to person, place and time Recent and remote memory: intact Attention span and concentration: improved Language: expansive Fund of knowledge: average Mood: Euthymic. Affect: Congruent DIAGNOSES: Bipolar I Disorder, Recurrent with mixed features Anxiety Disorder Hypertension GERD Cannabis Use Disorder Tobacco Use Disorder Chronic Back Pain ASSESSMENT: Patient observed as moderately irritable and with mild agitation. States that he still doesn't think he has bipolar symptoms. But I am trying to introduce the Bipolar Education with him in order for him to understand medications, and the rationality of them Time Spent 20 minutes Patient was seen on 02/01/20, there is a dictation done for 02/01/20 as well as this note was pending completion and thus it was completed today. Vital Signs Vital Signs Date Time Temp Pulse Resp B/P (MAP) Pulse Ox O2 Delivery O2 Flow Rate FiO2 02/01/20 08:29 94 160/81 02/01/20 06:05 97.8 18 100 Room Air Current Medications Current Medications Medications (Trade) Dose Ordered Sig/Rosio Route PRN Reason Start Time Stop Time Status Last Admin Dose Admin Al Hydrox/Mg Hydrox/Simethicone (Mylanta) 30 ml Q4HP PRN PO HEARTBURN/INDIGESTION 01/30/20 19:00 Albuterol Sulfate (Proventil, Ventolin Hfa) 2 puff Q4HP PRN INH SHORTNESS OF BREATH 01/30/20 19:00 02/01/20 06:30 Amlodipine Besylate (Norvasc) 5 mg DAILY PO 01/31/20 09:00 02/01/20 08:29 Folic Acid (Folic Acid) 1 mg DAILY PO 01/31/20 09:00 02/01/20 08:29 Ibuprofen (Advil) 400 mg Q6HP PRN PO PAIN 01/30/20 19:00 01/31/20 18:53 Lisinopril (Prinivil) 5 mg QAM PO 01/31/20 09:00 02/01/20 08:30 Loratadine (Claritin) 10 mg QHS PO 02/01/20 21:00 Lorazepam (Ativan) 2 mg ASDIRECTED PRN PO SEE PROTOCOL 01/30/20 19:00 01/31/20 18:34 Magnesium Hydroxide (Milk Of Magnesia) 30 ml DAILYPRN PRN PO CONSTIPATION 01/30/20 19:00 Multivitamins (Theragram-M) 1 tab DAILY PO 01/31/20 09:00 02/01/20 08:29 Nicotine (Nicoderm Cq 21mg) 1 patch DAILYPRN PRN TD NICOTINE WITHDRAWAL 01/31/20 14:45 01/31/20 15:05 Olanzapine (ZyPREXA ZYDIS) 5 mg Q4HP PRN PO AGITATION 01/30/20 19:00 01/31/20 15:04 Olanzapine (ZyPREXA) 5 mg BID PO 01/31/20 21:00 02/01/20 08:29 Omeprazole (PriLOSEC) 40 mg DAILY PO 01/31/20 09:00 02/01/20 08:30 Sertraline HCl (Zoloft) 100 mg DAILY PO 01/31/20 09:00 01/31/20 08:35 Thiamine HCl (Thiamine HCl) 100 mg BID PO 01/30/20 21:00 02/02/20 20:59 02/01/20 08:30 Trazodone HCl (Desyrel) 50 mg QHSP PRN PO INSOMNIA 01/30/20 19:00 01/31/20 20:49 Allergies Coded Allergies: Mushroom (Verified Allergy, Mild, rash, 01/29/20) MERRY SCHNEIDER NP Feb 01, 2020 09:44
--- NOTE | 2020-02-05 10:58 | MHIPN ---
DATE OF ASSESSMENT: 02/01/2020 approximately 1125 to 1158. DATE OF ADMISSION: 01/30/2020 ATTENDING: Romy Bauer NP and Dasia Lawler MD. HISTORY: The patient is a 40-year-old single domiciled male who presents to [facility] for bizarre and delusional psychotic behaviors. HISTORY OF PRESENT ILLNESS: According to the ED, the patient is a 39-year-old male who was seen by his primary care provider, and his primary care provider recommended that he be psychiatrically evaluated at [facility]. He went to his appointment and was observed as bizarre having tangential pressured and disorganized speech pattern during his appointment. He arrived his appointment wearing headlamps stating that he likes to always have access to flashlights. His girlfriend, Alyson, provided collateral stating that one week prior, he had a change in his mental status, he was acting out of character, was nailing his daughters toys on the wall; observed to be making dinner, washed the cool and dinner was in, and then began to eat the food from the dishwater. He has been counting excessively and repeating his name over and over. Reports that the patient has been frequently very angry. VITAL SIGNS: Within normal limits. TEST RESULTS: None new available. CURRENT MEDICATIONS: See medication reconciliation. MENTAL STATUS EXAMINATION: The patient is a 39-year-old single domiciled male who presented to [facility] for bizarre and delusional psychotic behaviors. He appears older than his stated age. He is dressed appropriately. Hygiene and grooming are fair. Eye contact is good. He does have some psychomotor agitation and eye contact is sometimes hypervigilant, but overall normal. Speech is spontaneous pressured speech. Language skills are intact. Thought process is somewhat disorganized and tangential, but overall linear and goal oriented. Thought content denies depression and denies anxiety at the time of the interview, but he reports that he has a history of depression and anxiety. He presents in the interview as very agitated and irritable. Abstract reasoning and concentration is fair. Description of associations not observed and he denied. Description of abnormal or psychotic thoughts none observed and he denied. Judgment fair to poor at times. Insight fair to poor at times. Orientation alert and oriented to person, place, time and situation. Recent and remote memory mostly intact. He has some difficulties remember dates. Attention span and concentration good. Language expansive. Fund of knowledge average. Mood mildly labile and hypomanic. Affect irritable. DIAGNOSES: Bipolar 1 disorder. Anxiety disorder. Hypertension. Gastroesophageal reflux disease (GERD) Cannabis use disorder. Tobacco use disorder. ASSESSMENT: Patient was initially calm and cooperative in the interview. He was quite tangential and circumstantial at times. Depression and anxiety, he reports that he is missed diagnosed bipolar and that he was previously admitted to the hospital and feels that he should only be diagnosed as depressed and anxious. States that he does not understand why anybody would need bipolar medications. At this time, I did not try to encourage bipolar meds with him. I did talk to him about medications for his mood. He was agreeable to Latuda and again, I did not push this medication as bipolar medication rather that it was medication for mood stabilization. The patient was agreeable to the medication. He feels the Zyprexa is working for him. He is not observed as aggressive on the unit and has been cooperative in the milieu going to groups. MANAGEMENT PLAN: We will discharge the patient when he is stable on medications possibly early next week. TIME SPENT: 25 minutes. LUZ MARIA
--- NOTE | 2020-02-05 15:25 | MHDSPDOC ---
[facility] Discharge Summary Discharge Summary DATE OF ADMISSION: Jan 30, 2020 at 21:46 DATE OF DISCHARGE: February 05, 2020 at 0941 DISCHARGE DIAGNOSES: Bipolar I Disorder, Recurrent with mixed features Anxiety Disorder Hypertension GERD Cannabis Use Disorder Tobacco Use Disorder Chronic Back Pain REASON FOR ADMISSION: Patient is a 39 year old Single, Domiciled, Male who presents to [facility] for bizarre and delusional and psychotic behaviors. According to the ED Report: patient is a 39 -year-old , male, who was seen by his PCP and his PCP recommended that he be psychiatrically evaluated. Patient was observed as bizarre and having tangential and disorganized speech p attern during his appointment. He arrived to his appointment wearing a head lamp stating that he like to always have access to flashlights. His girlfriend Alyson provided collateral stating that one week prior he had a change in his mental status. He was acting out of character, he was nailing his daughters toys on the wall. He was observed to be making dinner, wash the cool that dinner was in adn then began to eat the food from the water. Counting excessively and repeating his name over and over. Reports that patient is frequently angry. CONSULTANTS INVOLVED: See Medical H + P by Medical Provider TREATMENT AND PROGRESS ON THE UNIT : Patient was admitted to the [facility] on a 9.39 legal status he was afforded the following treatment modalities: 1) Individual Therapy 2) Group Therapy 3) Medication Management 4) Milieu Therapy 5) Safe Environment HOSPITAL COURSE: Patient admitted to [facility] on a 9.39 legal status. Patient was sent here after he went to his PCP appointment with fast, pressured, tangential speech with disorganized thoughts. He wore a head lamp to his appointment which made him appear even more disorganized. During his initial Psychiatric Assessment in [facility], patient was moderately agitated, irritable and reporting that he did not feel that there was anything wrong with his presentation at his Primary Care Provider's Office. He was very angry with his previous diagnosis of Bipolar when he was admitted years ago. He was already taking Zyprexa Zydis and was started on Latuda. DISCHARGE ASSESSMENT: Patient stable for discharge, he is not longer having symptoms of psychosis or chan. Denies depression and anxiety, no suicidal or homicidal ideation. MENTAL STATUS EXAMINATION ON DISCHARGE: Patient is a 39 year old Single, Domiciled, Male who presents to [facility] for bizarre and delusional and psychotic behaviors. He is dressed appropriately, he smiles on approach, calm and cooperative in the interview. He is not observed with agitation or retardation. Speech: Is less pressure, less tangential and normal rate tone and volume. Language skills are intact Thought processes including: linear and goal oriented Thought content: reports less racing thoughts, no depression no suicidal ideation Abstract reasoning, and computation: good Description of associations: none observed, patient denies Description of abnormal or psychotic thoughts: none observed, patient denies Judgment: fair Insight: good Orientation: alert and oriented to person, place and time Recent and remote memory: intact Attention span and concentration: improved Language: expansive Fund of knowledge: average Mood: Euthymic. Affect: Congruent MEDICATIONS ON DISCHARGE: See Medication Reconciliation PLAN/FOLLOWUP ARRANGEMENTS: [facility] - See Discharge Planners Notes The amount of time spent in the coordination of care for this patient was approximately 20 minutes. Vital Signs/I&Os Vital Signs Date Time Temp Pulse Resp B/P (MAP) Pulse Ox O2 Delivery O2 Flow Rate FiO2 02/05/20 07:59 100 168/96 02/05/20 06:43 97.8 20 99 02/04/20 07:11 Room Air Medications Scheduled Amlodipine Besylate (Norvasc) 5 Mg Tablet, 5 MG PO DAILY for Blood Pressure, #7 Lisinopril (Lisinopril) 5 Mg Tablet, 5 MG PO QAM for Blood Pressure, #7 Loratadine (Claritin) 10 Mg Tablet, 10 MG PO QHS for Allergies, #7 Lurasidone Hydrochloride (Latuda) 20 Mg Tablet, 20 MG PO DAILY@08 for Mood, #7 Olanzapine (Olanzapine) 5 Mg Tablet, 5 MG PO QAM for Agitation, #7 Omeprazole (Omeprazole) 40 Mg Capsule.dr, 40 MG PO DAILY, (Reported) Scheduled PRN Albuterol Sulfate (Ventolin Hfa) 18 Gm Hfa.aer.ad, 2 PUFFS INH Q4H PRN for SHORTNESS OF BREATH, (Reported) Olanzapine (Olanzapine) 5 Mg Tablet, 5 MG PO BIDP PRN for ANXIETY/AGITATION, #14 Allergies Coded Allergies: Mushroom (Verified Allergy, Mild, rash, 01/29/20) MERRY SCHNEIDER CLOTH COVERER Feb 05, 2020 09:51
--- NOTE | 2020-02-06 07:35 | MHIPN ---
DATE OF SERVICE: 02/03/2020 HISTORY OF PRESENT ILLNESS: The patient today states Im feeling a lot better. He says that he did get some sleep. He says Im not stressing out about anything. MENTAL STATUS EXAM: This patient is alert and oriented times 3. He is cooperative, verbally spontaneous. There was no formal thought disorder. At this point I am not eliciting any psychotic symptoms. He is not suicidal or homicidal. Concentration is fair. He says his mood is better. Affect appears to be appropriate. DIAGNOSES: * Bipolar disorder. * Unspecified psychotic disorder. * Cannabis use disorder. TREATMENT PLAN: At this point we will continue to monitor the patient for continued resolution of what appeared to be psychotic symptoms and manic like symptoms and we will continue to titrate medications as indicated. LUZ MARIA
[2020-02-07] MEDS ORDERED: OLAN10TA2 PO (15:53)
== END 2020-02-05 12:00 | disposition home or self-care (01) | DRG 753 ==
LOC: M PSY 21:46
PROVIDERS: ADMIT Psychiatry & Neurology Psychiatry; ATTEND Psychiatry & Neurology Psychiatry
DX: F31.60 Bipolar disorder, current episode mixed, unspecified (principal); I10 Essential (primary) hypertension; K21.9 Gastro-esophageal reflux disease without esophagitis; F41.9 Anxiety disorder, unspecified; F12.90 Cannabis use, unspecified, uncomplicated; F17.200 Nicotine dependence, unspecified, uncomplicated; M54.5 Low back pain; Z79.899 Other long term (current) drug therapy; Z91.018 Allergy to other foods; J45.909 Unspecified asthma, uncomplicated; E66.9 Obesity, unspecified; Z68.39 Body mass index [BMI] 39.0-39.9, adult

== ENCOUNTER → 2020-08-20 | Outpatient (REF) | payer OTHER ==
[~2020-08-20] MED LIST changes: +CLAR10TA7 PO; +LATU20TA PO; +LISI-898 PO; +NORV5TAB PO; +OLAN10TA2 PO; +OLAN5TAB PO
== END ==
LOC: M SFHCADAM 14:19
PROVIDERS: ATTEND Physician Assistant Medical
DX: Z53.8 Procedure and treatment not carried out for other reasons (principal)

== ENCOUNTER → 2020-08-22 | Outpatient (REF) | payer OTHER | LOC: M SFHCADAM 09:20 | PROVIDERS: ATTEND Physician Assistant Medical | DX: K52.9 Noninfective gastroenteritis and colitis, unspecified (principal) ==

== ENCOUNTER 2020-08-23 15:22 | Emergency (ER) | payer OTHER ==
[~2020-08-23] VITALS: Ht 185.4 cm; Wt 138.7 kg
[2020-08-23 16:54] LABS: BASO # 0.1 10^3/uL (0.0-0.2); BASO % 0.4 % (0.0-1.0); EOS # 0.1 10^3/uL (0.0-0.5); EOS % 1.1 % (0.0-3.0); HEMATOCRIT 47.3 % (42.0-52.0); LYMPH # 3.3 10^3/uL (1.5-5.0); LYMPH % 29.2 % (24.0-44.0); MEAN CORPUSCULAR HEMOGLOBIN 30.9 pg (27.0-33.0); MEAN CORPUSCULAR HGB CONC 33.8 g/dl (32.0-36.5); MEAN CORPUSCULAR VOLUME 91.3 fl (80.0-96.0); MONO # 0.8 10^3/uL (0.0-0.8); MONO % 7.5 % (2.0-8.0); NEUTROPHILS # 6.9 10^3/uL (1.5-8.5); NEUTROPHILS % 61.6 % (36.0-66.0); PLATELET COUNT, AUTOMATED 417 10^3/uL (150-450); RED BLOOD COUNT 5.18 10^6/uL (4.30-6.10); WHITE BLOOD COUNT 11.1 10^3/uL (4.0-10.0)
[2020-08-23 17:29] LABS: ALBUMIN 4.3 GM/DL (3.2-5.2); ALT/SGPT 142 U/L (12-78); BILIRUBIN,DIRECT 0.1 MG/DL (0.0-0.2); BILIRUBIN,TOTAL 0.6 MG/DL (0.2-1.0); BLOOD UREA NITROGEN 7 MG/DL (7-18); CALCIUM LEVEL 9.9 MG/DL (8.5-10.1); CARBON DIOXIDE LEVEL 28 MEQ/L (21-32); CHLORIDE LEVEL 106 MEQ/L (98-107); CREATININE FOR GFR 0.94 MG/DL (0.70-1.30); GLOMERULAR FILTRATION RATE > 60.0 (>60); GLUCOSE, FASTING 91 MG/DL (70-100); LIPASE 107 U/L (73-393); SODIUM LEVEL 140 MEQ/L (136-145)
[2020-08-23] MEDS ORDERED: ONDANSETRON 4MG/2ML VIAL IV ONE (17:35)
[2020-08-23] MEDS ORDERED: KETOROLAC 30 MG/ML 1ML VIAL IV ONE (17:35)
--- NOTE | 2020-08-23 18:42 | REP ---
INDICATION: ruq pain COMPARISON: None. TECHNIQUE: Real time liang scale ultrasound examination using curved array transducer. FINDINGS: Liver is enlarged and hyperechoic suggesting fatty infiltration. No focal hepatic lesion identified. Pancreas is incompletely evaluated due to interposed bowel gas. The gallbladder is normal and without gallstones, wall thickening, or pericholecystic fluid. No biliary ductal dilatation is appreciated and the common bile duct measures 3.3 mm diameter. Right kidney is normal in reniform shape without hydronephrosis and measures 11.7 x 5.8 x 6.1 cm. No ascites in the visualized right upper quadrant. IMPRESSION: Hepatomegaly and hepatosteatosis <Electronically signed by Jose Maria Chatman > 08/23/20 [id number]
[2020-08-23] MEDS ORDERED: ISOVUE-370 76% 100ML VIAL As Ordered ONE (19:48)
--- NOTE | 2020-08-23 20:34 | REPVR ---
PROCEDURE INFORMATION: Exam: CT Abdomen And Pelvis With Contrast Exam date and time: 08/23/2020 7:54 PM Age: 40 years old Clinical indication: Abdominal pain; Generalized; Additional info: Right sided abd pain TECHNIQUE: Imaging protocol: Computed tomography of the abdomen and pelvis with contrast. Radiation optimization: All CT scans at this facility use at least one of these dose optimization techniques: automated exposure control; mA and/or kV adjustment per patient size (includes targeted exams where dose is matched to clinical indication); or iterative reconstruction. Contrast material: ISOVUE 370; Contrast volume: 100 ml; Contrast route: INTRAVENOUS (IV); COMPARISON: Abdomen, limited US 02/18/2018 12:25 PM FINDINGS: Lungs: No suspicious mass or airspace process in the visualized lung bases. Liver: Liver demonstrates fatty infiltration with focal sparing around the gallbladder fossa. Gallbladder and bile ducts: Gallbladder is present and shows no evidence of gallstone. Pancreas: Pancreas appears normal. No focal mass or peripancreatic inflammation. Spleen: Spleen appears homogeneous without focal mass. Adrenal glands: Adrenal glands are normal in appearance. Kidneys and ureters: Kidneys appear normal, with no stone, solid mass or hydronephrosis. Stomach and bowel: No evidence of small bowel obstruction. Terminal ileum has normal appearance. No evidence of acute diverticulitis. Appendix: Normal caliber appendix is identified, with no adjacent inflammation. Intraperitoneal space: No pneumoperitoneum. Vasculature: No aortic aneurysm. Main portal and splenic veins enhance normally. Lymph nodes: No enlarged lymph nodes. Urinary bladder: Urinary bladder appears normal. Reproductive: No overt enlargement of the prostate gland. Bones/joints: Bony structures show no acute fracture or destructive process. Soft tissues: No concerning focal abnormality of the extra-abdominal and pelvic soft tissues. IMPRESSION: 1. Hepatic steatosis and hepatomegaly. No biliary obstruction or focal hepatic lesion. 2. No other concerning abnormality. Electronically signed by: Luis Manning On 08/23/2020 20:33:57 PM
[2020-08-23 21:19] VITALS: BP 152/65
--- NOTE | 2020-08-24 09:43 | ED PDOC ---
Post-Departure Follow-Up radiology report faxed to Radha Adkins Sarah MD August 24, 2020 09:43
== END 2020-08-23 21:20 | disposition home or self-care (01) ==
LOC: M ED 15:22
DX: R10.84 Generalized abdominal pain (principal); R11.0 Nausea; K76.0 Fatty (change of) liver, not elsewhere classified; I10 Essential (primary) hypertension; J45.909 Unspecified asthma, uncomplicated; F90.9 Attention-deficit hyperactivity disorder, unspecified type; F42.9 Obsessive-compulsive disorder, unspecified; K21.9 Gastro-esophageal reflux disease without esophagitis; M41.9 Scoliosis, unspecified; Z91.018 Allergy to other foods; Z79.899 Other long term (current) drug therapy; F17.210 Nicotine dependence, cigarettes, uncomplicated; F12.20 Cannabis dependence, uncomplicated
CPT/HCPCS: 74177; 76705; 80048; 80076; 81001; 83690; 85025; 96374; 96375; 99284; J1885; J2405; Q9967

== ENCOUNTER → 2020-11-08 | Outpatient (REF) | payer OTHER ==
[~2020-11-08] MED LIST changes: -LISI2.5T2 PO; +LISI2.5T9 PO; -OLAN10TA2 PO; +OLAN1TAB16 PO; +OLAN1TAB20 PO; -OLAN5TAB PO
[2020-11-08 13:02] LABS: BASO % 0.5 % (0.0-1.0); EOS # 0.1 10^3/uL (0.0-0.5); EOS % 1.6 % (0.0-3.0); HEMOGLOBIN 14.4 g/dl (13.5-17.5); LYMPH % 31.6 % (24.0-44.0); MEAN CORPUSCULAR HEMOGLOBIN 30.1 pg (27.0-33.0); MEAN CORPUSCULAR HGB CONC 32.7 g/dl (32.0-36.5); MEAN CORPUSCULAR VOLUME 92.1 fl (80.0-96.0); MONO # 0.4 10^3/uL (0.0-0.8); MONO % 6.3 % (2.0-8.0); NEUTROPHILS # 3.7 10^3/uL (1.5-8.5); NEUTROPHILS % 59.7 % (36.0-66.0); PLATELET COUNT, AUTOMATED 326 10^3/uL (150-450); RED BLOOD COUNT 4.78 10^6/uL (4.30-6.10); WHITE BLOOD COUNT 6.2 10^3/uL (4.0-10.0)
[2020-11-08 13:42] LABS: ALBUMIN 4.2 GM/DL (3.2-5.2); ALT/SGPT 53 U/L (12-78); BILIRUBIN,DIRECT 0.1 MG/DL (0.0-0.2); BILIRUBIN,TOTAL 0.6 MG/DL (0.2-1.0); BLOOD UREA NITROGEN 14 MG/DL (7-18); CREATININE FOR GFR 0.93 MG/DL (0.70-1.30); GLOMERULAR FILTRATION RATE > 60.0 (>60); IRON (FE) 90 UG/DL (65-175); TOTAL IRON BINDING CAPACITY 310 UG/DL (250-450); TOTAL PROTEIN 7.6 GM/DL (6.4-8.2)
== END ==
LOC: M LABDRWAD 12:37
PROVIDERS: ATTEND Internal Medicine Gastroenterology
DX: R10.30 Lower abdominal pain, unspecified (principal)

== ENCOUNTER 2021-05-07 13:09 | Emergency (ER) | payer OTHER, MEDICAID ==
[~2021-05-07] VITALS: Ht 185.4 cm; Wt 137.9 kg
[~2021-05-07 13:09] MED LIST changes: -LISI-898 PO; +LISI5TAB11 PO; -OMEP-221 PO; +OMEP40CA5 PO
[2021-05-07] MEDS ORDERED: LISI20TA33 (13:15)
[2021-05-07] MEDS ORDERED: AMLO1TAB24 (13:15)
[2021-05-07] MEDS ORDERED: DICY10CA13 (13:15)
[2021-05-07] MEDS ORDERED: QUET50TA4 (13:15)
[2021-05-07 16:08] LABS: HEMATOCRIT 45.5 % (42.0-52.0); HEMOGLOBIN 15.2 g/dl (13.5-17.5); MEAN CORPUSCULAR HEMOGLOBIN 30.5 pg (27.0-33.0); MEAN CORPUSCULAR HGB CONC 33.4 g/dl (32.0-36.5); MEAN CORPUSCULAR VOLUME 91.4 fl (80.0-96.0); PLATELET COUNT, AUTOMATED 334 10^3/uL (150-450); RED BLOOD COUNT 4.98 10^6/uL (4.30-6.10); WHITE BLOOD COUNT 10.3 10^3/uL (4.0-10.0)
[2021-05-07 17:03] LABS: ACETAMINOPHEN LEVEL < 2.0 UG/ML (10.0-30.0); ALBUMIN 4.3 GM/DL (3.2-5.2); ALT/SGPT 89 U/L (12-78); AMPHETAMINES LEVEL URINE NEGATIVE (NEGATIVE); BARBITURATES URINE NEGATIVE (NEGATIVE); BENZODIAZEPINES URINE NEGATIVE (NEGATIVE); BILIRUBIN,DIRECT 0.2 MG/DL (0.0-0.2); BILIRUBIN,TOTAL 0.7 MG/DL (0.2-1.0); BLOOD UREA NITROGEN 14 MG/DL (7-18); CALCIUM LEVEL 9.7 MG/DL (8.5-10.1); CANNABINOIDS URINE POSITIVE (NEGATIVE); CARBON DIOXIDE LEVEL 27 MEQ/L (21-32); CHLORIDE LEVEL 107 MEQ/L (98-107); COCAINE METABOLITE URINE NEGATIVE (NEGATIVE); CREATININE FOR GFR 1.03 MG/DL (0.70-1.30); ETHYL ALCOHOL (ETHANOL) < 0.003 % (0.000-0.010); GLOMERULAR FILTRATION RATE > 60.0 (>60); GLUCOSE, FASTING 82 MG/DL (70-100); METHADONE URINE NEGATIVE (NEGATIVE); OPIATES URINE NEGATIVE (NEGATIVE); PHENCYCLIDINE URINE NEGATIVE (NEGATIVE); POTASSIUM SERUM 4.1 MEQ/L (3.5-5.1); SALICYLATE LEVEL 3.2 MG/DL (5.0-30.0); SODIUM LEVEL 140 MEQ/L (136-145); THYROID STIMULATING HORMONE 0.897 uIU/ML (0.358-3.740); TOTAL PROTEIN 7.8 GM/DL (6.4-8.2)
[2021-05-07 17:36] LABS: RSV AMPLIFICATION NEGATIVE (NEGATIVE)
[2021-05-07] MEDS ORDERED: QUEtiapine FUMARATE 200 MG TAB PO ONE (23:00)
[2021-05-07] MEDS ORDERED: QUEtiapine FUMARATE 50MG TAB PO ONE (23:00)
[2021-05-08] MEDS ORDERED: QUET50TA4 PO (00:44)
[2021-05-08] MEDS ORDERED: AMLO1TAB24 PO (00:44)
[2021-05-08] MEDS ORDERED: CETI-24 PO (00:44)
[2021-05-08] MEDS ORDERED: LISI20TA33 PO (00:44)
[2021-05-08] MEDS ORDERED: QUET200T2 PO (00:44)
[2021-05-08] MEDS ORDERED: DICY1CAP8 PO (00:44)
[2021-05-08] MEDS ORDERED: HOME MED LIST COMPLETE! XX SCH (00:45)
[2021-05-08 12:13] VITALS: BP 148/68
== END 2021-05-08 12:17 ==
LOC: M ED 13:09
DX: R45.851 Suicidal ideations (principal); F31.9 Bipolar disorder, unspecified; F10.10 Alcohol abuse, uncomplicated; F12.10 Cannabis abuse, uncomplicated; Z79.899 Other long term (current) drug therapy; Z88.8 Allergy status to other drugs, medicaments and biological substances; Z91.018 Allergy to other foods

== ENCOUNTER 2021-05-19 09:32 | Emergency (ER) | payer MEDICAID, OTHER ==
[~2021-05-19] VITALS: Ht 185.4 cm; Wt 138.4 kg
[~2021-05-19 09:32] MED LIST changes: +AMLO1TAB24; +AMLO1TAB24 PO; +CETI-24 PO; +DICY10CA13; +DICY1CAP8 PO; +LISI20TA33; +LISI20TA33 PO; +QUET200T2 PO; +QUET50TA4; +QUET50TA4 PO
[2021-05-19] MEDS ORDERED: AMLO1TAB25 PO (09:46)
[2021-05-19] MEDS ORDERED: LAMI25TA PO (09:46)
[2021-05-19] MEDS ORDERED: D3 +TAB PO (09:46)
[2021-05-19] MEDS ORDERED: QUET300T2 PO (09:46)
[2021-05-19] MEDS ORDERED: TRAZ-186 PO (09:46)
[2021-05-19 11:13] LABS: HEMATOCRIT 38.2 % (42.0-52.0); MEAN CORPUSCULAR HEMOGLOBIN 30.9 pg (27.0-33.0); MEAN CORPUSCULAR VOLUME 90.7 fl (80.0-96.0); PLATELET COUNT, AUTOMATED 325 10^3/uL (150-450); RED BLOOD COUNT 4.21 10^6/uL (4.30-6.10); WHITE BLOOD COUNT 8.3 10^3/uL (4.0-10.0)
[2021-05-19 11:50] LABS: ACETAMINOPHEN LEVEL < 2.0 UG/ML (10.0-30.0); ALBUMIN 3.9 GM/DL (3.2-5.2); ALT/SGPT 109 U/L (12-78); BILIRUBIN,DIRECT 0.2 MG/DL (0.0-0.2); BILIRUBIN,TOTAL 0.8 MG/DL (0.2-1.0); BLOOD UREA NITROGEN 14 MG/DL (7-18); CALCIUM LEVEL 9.1 MG/DL (8.5-10.1); CARBON DIOXIDE LEVEL 24 MEQ/L (21-32); CHLORIDE LEVEL 104 MEQ/L (98-107); CREATININE FOR GFR 0.92 MG/DL (0.70-1.30); ETHYL ALCOHOL (ETHANOL) < 0.003 % (0.000-0.010); GLOMERULAR FILTRATION RATE > 60.0 (>60); GLUCOSE, FASTING 98 MG/DL (70-100); POTASSIUM SERUM 4.2 MEQ/L (3.5-5.1); SALICYLATE LEVEL 1.8 MG/DL (5.0-30.0); SODIUM LEVEL 136 MEQ/L (136-145); TOTAL PROTEIN 6.8 GM/DL (6.4-8.2)
[2021-05-19 12:19] LABS: RSV AMPLIFICATION NEGATIVE (NEGATIVE)
[2021-05-19 12:53] LABS: AMPHETAMINES LEVEL URINE NEGATIVE (NEGATIVE); BARBITURATES URINE NEGATIVE (NEGATIVE); BENZODIAZEPINES URINE NEGATIVE (NEGATIVE); CANNABINOIDS URINE POSITIVE (NEGATIVE); COCAINE METABOLITE URINE NEGATIVE (NEGATIVE); METHADONE URINE NEGATIVE (NEGATIVE); OPIATES URINE NEGATIVE (NEGATIVE); PHENCYCLIDINE URINE NEGATIVE (NEGATIVE)
[2021-05-19 14:50] VITALS: BP 128/60
== END 2021-05-19 15:11 | disposition home or self-care (01) ==
LOC: M ED 09:32
DX: F31.9 Bipolar disorder, unspecified (principal); F10.10 Alcohol abuse, uncomplicated; F12.10 Cannabis abuse, uncomplicated; Z79.899 Other long term (current) drug therapy; Z88.8 Allergy status to other drugs, medicaments and biological substances; Z91.018 Allergy to other foods

== ENCOUNTER 2021-05-28 13:38 | Inpatient (IN) | payer MEDICAID, OTHER ==
[~2021-05-28] VITALS: Ht 185.4 cm; Wt 134.5 kg
[~2021-05-28 13:38] MED LIST changes: +AMLO1TAB25 PO; +D3 +TAB PO; +LAMI25TA PO; +QUET300T2 PO; +TRAZ-186 PO
[2021-05-28] MEDS ORDERED: CLON-412 (13:45)
[2021-05-28] MEDS ORDERED: VITA100093 (13:45)
[2021-05-28 14:26] LABS: HEMATOCRIT 41.1 % (42.0-52.0); HEMOGLOBIN 13.7 g/dl (13.5-17.5); MEAN CORPUSCULAR HEMOGLOBIN 30.8 pg (27.0-33.0); MEAN CORPUSCULAR HGB CONC 33.3 g/dl (32.0-36.5); MEAN CORPUSCULAR VOLUME 92.4 fl (80.0-96.0); PLATELET COUNT, AUTOMATED 390 10^3/uL (150-450); RED BLOOD COUNT 4.45 10^6/uL (4.30-6.10); WHITE BLOOD COUNT 8.7 10^3/uL (4.0-10.0)
[2021-05-28 15:09] LABS: BLOOD UREA NITROGEN 9 MG/DL (7-18); GLUCOSE, FASTING 88 MG/DL (70-100)
[2021-05-28 15:10] LABS: ACETAMINOPHEN LEVEL < 2.0 UG/ML (10.0-30.0); ALBUMIN 4.2 GM/DL (3.2-5.2); ALT/SGPT 117 U/L (12-78); BILIRUBIN,DIRECT < 0.1 MG/DL (0.0-0.2); BILIRUBIN,TOTAL 0.5 MG/DL (0.2-1.0); CALCIUM LEVEL 9.2 MG/DL (8.5-10.1); CARBON DIOXIDE LEVEL 26 MEQ/L (21-32); CHLORIDE LEVEL 109 MEQ/L (98-107); ETHYL ALCOHOL (ETHANOL) < 0.003 % (0.000-0.010); GLOMERULAR FILTRATION RATE > 60.0 (>60); POTASSIUM SERUM 3.9 MEQ/L (3.5-5.1); SALICYLATE LEVEL 2.6 MG/DL (5.0-30.0); SODIUM LEVEL 141 MEQ/L (136-145); TOTAL PROTEIN 7.8 GM/DL (6.4-8.2)
[2021-05-28 15:32] LABS: RSV AMPLIFICATION NEGATIVE (NEGATIVE)
[2021-05-28 15:45] LABS: AMPHETAMINES LEVEL URINE NEGATIVE (NEGATIVE); BARBITURATES URINE NEGATIVE (NEGATIVE); BENZODIAZEPINES URINE NEGATIVE (NEGATIVE); CANNABINOIDS URINE POSITIVE (NEGATIVE); COCAINE METABOLITE URINE NEGATIVE (NEGATIVE); METHADONE URINE NEGATIVE (NEGATIVE); OPIATES URINE NEGATIVE (NEGATIVE); PHENCYCLIDINE URINE NEGATIVE (NEGATIVE)
[2021-05-28] MEDS ORDERED: LAMO25TA4 PO (17:52)
[2021-05-28] MEDS ORDERED: SERO1TAB2 PO (17:52)
[2021-05-28] MEDS ORDERED: CLONI1TA PO (17:52)
[2021-05-28] MEDS ORDERED: OMEP40CA5 PO (17:52)
[2021-05-28] MEDS ORDERED: VITA100054 PO (17:52)
[2021-05-28] MEDS ORDERED: LISI20TA33 PO (17:52)
[2021-05-28] MEDS ORDERED: TRAZ1TAB10 PO (18:06)
[2021-05-28] MEDS ORDERED: NORV5TAB PO (18:06)
[2021-05-28] MEDS ORDERED: SERO50TA PO (18:06)
[2021-05-28] MEDS ORDERED: AMLO1TAB25 PO (18:06)
[2021-05-28] MEDS ORDERED: DICY10CA13 PO (18:06)
[2021-05-28] MEDS ORDERED: CETI-24 PO (18:06)
[2021-05-28] MEDS ORDERED: HOME MED LIST COMPLETE! XX SCH (18:10)
[2021-05-28] MEDS ORDERED: MOM 30ML SUSPENSION UDC PO PRN (18:50)
[2021-05-28] MEDS ORDERED: traZODone 50 MG TAB PO PRN (18:50)
[2021-05-28] MEDS ORDERED: MAALOX 30 ML SUSP *UDC PO PRN (18:50)
[2021-05-28] MEDS: NICOTINE 21MG/24HR 1 EA TRANSDERMAL TD SCH (20:21)
[2021-05-28] MEDS ORDERED: DICYCLOMINE 10 MG CAP PO PRN (22:50)
[2021-05-28 23:25] VITALS: BP 110/60
[2021-05-28] MEDS: ACETAMINOPHEN TAB 650MG DOSE (2X325MG) PO PRN (23:49)
[2021-05-29 06:40] VITALS: BP 130/61
[2021-05-29] MEDS ORDERED: LORazepam 2 MG TAB PO PRN (06:40)
[2021-05-29 06:41] VITALS: BP 130/60
[2021-05-29] MEDS ORDERED: INFLUENZA QUADRIVALENT PF VACCINE 0.5ML SYRINGE IM ONE (09:00)
[2021-05-29] MEDS ORDERED: amLODIPine 5 MG TAB PO SCH (09:00)
[2021-05-29] MEDS: NICOTINE 21MG/24HR 1 EA TRANSDERMAL TD SCH (09:00)
[2021-05-29] MEDS: CETIRIZINE (ZyrTEC) 10 MG TAB PO SCH (09:09)
[2021-05-29] MEDS: lamoTRIgine 25MG TAB PO SCH ×2 (09:09→20:13)
[2021-05-29] MEDS: cloNIDine 0.1MG TABLET PO SCH ×3 (09:10→20:13)
[2021-05-29] MEDS: THIAMINE 100 MG TAB PO SCH ×2 (09:10→20:13)
[2021-05-29] MEDS: MULTIVITAMINS/MINERALS THERAP 1 TAB PO SCH (09:10)
[2021-05-29] MEDS: FOLIC ACID 1 MG TAB PO SCH (09:10)
[2021-05-29 15:00] VITALS: BP 138/64
[2021-05-29 19:16] VITALS: BP 159/85
[2021-05-29] MEDS: QUEtiapine FUMARATE 100 MG TAB PO SCH (20:13)
[2021-05-29 20:30] VITALS: BP 159/85
[2021-05-29] MEDS ORDERED: QUEtiapine FUMARATE 50MG TAB PO SCH (21:00)
[2021-05-29] MEDS ORDERED: QUEtiapine FUMARATE 100 MG TAB PO SCH ×2 (21:00)
[2021-05-29] MEDS ORDERED: traZODone 50 MG TAB PO SCH (21:00)
[2021-05-30 06:17] VITALS: BP 143/76
[2021-05-30 06:24] VITALS: BP 143/76
[2021-05-30] MEDS: CETIRIZINE (ZyrTEC) 10 MG TAB PO SCH (08:18)
[2021-05-30] MEDS: THIAMINE 100 MG TAB PO SCH ×2 (08:19→20:23)
[2021-05-30] MEDS: FOLIC ACID 1 MG TAB PO SCH (08:19)
[2021-05-30] MEDS: lamoTRIgine 25MG TAB PO SCH ×2 (08:19→20:22)
[2021-05-30] MEDS: MULTIVITAMINS/MINERALS THERAP 1 TAB PO SCH (08:19)
[2021-05-30] MEDS: cloNIDine 0.1MG TABLET PO SCH ×3 (08:25→20:22)
[2021-05-30] MEDS: NICOTINE 21MG/24HR 1 EA TRANSDERMAL TD SCH (08:25)
[2021-05-30] MEDS ORDERED: OLANZapine ORAL DISINTEGRATING TAB 5MG PO STA (09:03)
[2021-05-30 14:36] VITALS: BP 130/80
[2021-05-30 17:45] VITALS: BP 138/90
[2021-05-30] MEDS: QUEtiapine FUMARATE 100 MG TAB PO SCH (20:23)
[2021-05-31 06:09] VITALS: BP 135/71
[2021-05-31] MEDS: NICOTINE 21MG/24HR 1 EA TRANSDERMAL TD SCH (07:56)
[2021-05-31] MEDS: THIAMINE 100 MG TAB PO SCH ×2 (08:00→20:08)
[2021-05-31] MEDS: FOLIC ACID 1 MG TAB PO SCH (08:00)
[2021-05-31] MEDS: MULTIVITAMINS/MINERALS THERAP 1 TAB PO SCH (08:01)
[2021-05-31] MEDS: CETIRIZINE (ZyrTEC) 10 MG TAB PO SCH (08:01)
[2021-05-31] MEDS: cloNIDine 0.1MG TABLET PO SCH ×3 (08:02→20:08)
[2021-05-31] MEDS: lamoTRIgine 25MG TAB PO SCH ×2 (08:02→20:08)
[2021-05-31] MEDS: ACETAMINOPHEN TAB 650MG DOSE (2X325MG) PO PRN (09:18)
[2021-05-31 16:27] VITALS: BP 141/75
[2021-05-31] MEDS ORDERED: LORazepam 0.5 MG TAB PO ONE (18:00)
[2021-05-31] MEDS: QUEtiapine FUMARATE 100 MG TAB PO SCH (20:08)
[2021-06-01 06:37] VITALS: BP 130/61
[2021-06-01] MEDS: NICOTINE 21MG/24HR 1 EA TRANSDERMAL TD SCH (08:19)
[2021-06-01] MEDS: lamoTRIgine 25MG TAB PO SCH ×2 (08:26→20:04)
[2021-06-01] MEDS: MULTIVITAMINS/MINERALS THERAP 1 TAB PO SCH (08:26)
[2021-06-01] MEDS: cloNIDine 0.1MG TABLET PO SCH ×3 (08:26→20:04)
[2021-06-01] MEDS: CETIRIZINE (ZyrTEC) 10 MG TAB PO SCH (08:26)
[2021-06-01] MEDS: FOLIC ACID 1 MG TAB PO SCH (08:27)
[2021-06-01 16:15] VITALS: BP 146/68
[2021-06-01] MEDS: QUEtiapine FUMARATE 100 MG TAB PO SCH (20:04)
[2021-06-01] MEDS: traZODone 100 MG TAB PO PRN (20:04)
[2021-06-02 07:09] VITALS: BP 145/62
[2021-06-02] MEDS: CETIRIZINE (ZyrTEC) 10 MG TAB PO SCH (07:58)
[2021-06-02] MEDS: lamoTRIgine 25MG TAB PO SCH ×2 (07:58→20:14)
[2021-06-02] MEDS: NICOTINE 21MG/24HR 1 EA TRANSDERMAL TD SCH (07:59)
[2021-06-02] MEDS: FOLIC ACID 1 MG TAB PO SCH (07:59)
[2021-06-02] MEDS: MULTIVITAMINS/MINERALS THERAP 1 TAB PO SCH (07:59)
[2021-06-02] MEDS: cloNIDine 0.1MG TABLET PO SCH ×3 (07:59→20:15)
[2021-06-02 08:01] VITALS: BP 130/80
[2021-06-02] MEDS ORDERED: LORazepam 1 MG TAB PO ONE (09:00)
[2021-06-02] MEDS: QUEtiapine FUMARATE 50MG TAB PO SCH (11:47)
[2021-06-02] MEDS: ACETAMINOPHEN TAB 650MG DOSE (2X325MG) PO PRN (14:13)
[2021-06-02 18:24] VITALS: BP 146/60
[2021-06-02] MEDS: traZODone 100 MG TAB PO PRN (20:14)
[2021-06-02] MEDS: QUEtiapine FUMARATE 100 MG TAB PO SCH (20:15)
[2021-06-03 06:40] VITALS: BP 146/62
[2021-06-03] MEDS: cloNIDine 0.1MG TABLET PO SCH ×3 (08:31→20:37)
[2021-06-03] MEDS: QUEtiapine FUMARATE 50MG TAB PO SCH (08:31)
[2021-06-03] MEDS: FOLIC ACID 1 MG TAB PO SCH (08:31)
[2021-06-03] MEDS: lamoTRIgine 25MG TAB PO SCH ×2 (08:32→20:34)
[2021-06-03] MEDS: NICOTINE 21MG/24HR 1 EA TRANSDERMAL TD SCH (08:32)
[2021-06-03] MEDS: MULTIVITAMINS/MINERALS THERAP 1 TAB PO SCH (08:32)
[2021-06-03] MEDS: CETIRIZINE (ZyrTEC) 10 MG TAB PO SCH (08:32)
[2021-06-03] MEDS ORDERED: LORazepam 2 MG TAB PO STA (12:53)
[2021-06-03] MEDS ORDERED: hydrOXYzine 50 MG TAB PO PRN (13:10)
[2021-06-03 17:56] VITALS: BP 120/66
[2021-06-03] MEDS: QUEtiapine FUMARATE 100 MG TAB PO SCH (20:35)
[2021-06-03] MEDS: traZODone 100 MG TAB PO PRN (20:35)
[2021-06-04 07:10] VITALS: BP 149/70
[2021-06-04] MEDS: MULTIVITAMINS/MINERALS THERAP 1 TAB PO SCH (08:08)
[2021-06-04] MEDS: cloNIDine 0.1MG TABLET PO SCH ×3 (08:08→20:15)
[2021-06-04] MEDS: lamoTRIgine 25MG TAB PO SCH ×2 (08:08→20:14)
[2021-06-04] MEDS: QUEtiapine FUMARATE 50MG TAB PO SCH (08:08)
[2021-06-04] MEDS: FOLIC ACID 1 MG TAB PO SCH (08:08)
[2021-06-04] MEDS: CETIRIZINE (ZyrTEC) 10 MG TAB PO SCH (08:09)
[2021-06-04] MEDS: NICOTINE 21MG/24HR 1 EA TRANSDERMAL TD SCH (08:11)
[2021-06-04] MEDS: ACETAMINOPHEN TAB 650MG DOSE (2X325MG) PO PRN (09:50)
[2021-06-04 18:51] VITALS: BP 133/77
[2021-06-04] MEDS: traZODone 100 MG TAB PO PRN (20:15)
[2021-06-04] MEDS: QUEtiapine FUMARATE 100 MG TAB PO SCH (20:16)
[2021-06-05 06:26] VITALS: BP 130/69
[2021-06-05] MEDS: CETIRIZINE (ZyrTEC) 10 MG TAB PO SCH (08:11)
[2021-06-05] MEDS: lamoTRIgine 25MG TAB PO SCH ×2 (08:11→20:02)
[2021-06-05] MEDS: MULTIVITAMINS/MINERALS THERAP 1 TAB PO SCH (08:12)
[2021-06-05] MEDS: cloNIDine 0.1MG TABLET PO SCH ×3 (08:12→20:04)
[2021-06-05] MEDS: FOLIC ACID 1 MG TAB PO SCH (08:12)
[2021-06-05] MEDS: NICOTINE 21MG/24HR 1 EA TRANSDERMAL TD SCH (08:14)
[2021-06-05] MEDS: QUEtiapine FUMARATE 50MG TAB PO SCH (08:14)
[2021-06-05] MEDS: hydrOXYzine 50 MG TAB PO SCH (15:31)
[2021-06-05 18:10] VITALS: BP 139/67
[2021-06-05] MEDS: QUEtiapine FUMARATE 100 MG TAB PO SCH (20:02)
[2021-06-06 06:35] VITALS: BP 146/63
[2021-06-06] MEDS: CETIRIZINE (ZyrTEC) 10 MG TAB PO SCH (08:18)
[2021-06-06] MEDS: FOLIC ACID 1 MG TAB PO SCH (08:18)
[2021-06-06] MEDS: cloNIDine 0.1MG TABLET PO SCH ×3 (08:18→20:10)
[2021-06-06] MEDS: hydrOXYzine 50 MG TAB PO SCH ×2 (08:18→15:12)
[2021-06-06] MEDS: MULTIVITAMINS/MINERALS THERAP 1 TAB PO SCH (08:19)
[2021-06-06] MEDS: QUEtiapine FUMARATE 50MG TAB PO SCH (08:19)
[2021-06-06] MEDS: lamoTRIgine 25MG TAB PO SCH ×2 (08:19→20:10)
[2021-06-06] MEDS: NICOTINE 21MG/24HR 1 EA TRANSDERMAL TD SCH (09:00)
[2021-06-06] MEDS: OLANZapine ORAL DISINTEGRATING TAB 5MG PO PRN (18:04)
[2021-06-06 19:27] VITALS: BP 139/58
[2021-06-06] MEDS: traZODone 100 MG TAB PO SCH (20:10)
[2021-06-06] MEDS: QUEtiapine FUMARATE 100 MG TAB PO SCH (20:11)
[2021-06-07 07:11] VITALS: BP 150/66
[2021-06-07] MEDS: CETIRIZINE (ZyrTEC) 10 MG TAB PO SCH (08:09)
[2021-06-07] MEDS: FOLIC ACID 1 MG TAB PO SCH (08:09)
[2021-06-07] MEDS: MULTIVITAMINS/MINERALS THERAP 1 TAB PO SCH (08:09)
[2021-06-07] MEDS: QUEtiapine FUMARATE 50MG TAB PO SCH (08:09)
[2021-06-07] MEDS: lamoTRIgine 25MG TAB PO SCH ×2 (08:09→20:12)
[2021-06-07] MEDS: hydrOXYzine 50 MG TAB PO SCH ×2 (08:09→16:54)
[2021-06-07] MEDS: NICOTINE 21MG/24HR 1 EA TRANSDERMAL TD SCH (08:10)
[2021-06-07] MEDS: cloNIDine 0.1MG TABLET PO SCH ×3 (09:42→20:12)
[2021-06-07] MEDS: OLANZapine ORAL DISINTEGRATING TAB 5MG PO PRN (15:23)
[2021-06-07 18:57] VITALS: BP 142/76
[2021-06-07] MEDS: traZODone 100 MG TAB PO SCH (20:12)
[2021-06-07] MEDS: QUEtiapine FUMARATE 100 MG TAB PO SCH (20:12)
[2021-06-08 06:46] VITALS: BP 141/70
[2021-06-08] MEDS: lamoTRIgine 25MG TAB PO SCH ×2 (08:24→20:05)
[2021-06-08] MEDS: cloNIDine 0.1MG TABLET PO SCH ×3 (08:25→20:06)
[2021-06-08] MEDS: QUEtiapine FUMARATE 50MG TAB PO SCH (08:25)
[2021-06-08] MEDS: CETIRIZINE (ZyrTEC) 10 MG TAB PO SCH (08:25)
[2021-06-08] MEDS: FOLIC ACID 1 MG TAB PO SCH (08:25)
[2021-06-08] MEDS: MULTIVITAMINS/MINERALS THERAP 1 TAB PO SCH (08:25)
[2021-06-08] MEDS: hydrOXYzine 50 MG TAB PO SCH ×2 (08:25→15:28)
[2021-06-08] MEDS: NICOTINE 21MG/24HR 1 EA TRANSDERMAL TD SCH (08:27)
[2021-06-08 18:59] VITALS: BP 139/82
[2021-06-08] MEDS: QUEtiapine FUMARATE 100 MG TAB PO SCH (20:05)
[2021-06-08] MEDS: traZODone 100 MG TAB PO SCH (20:05)
[2021-06-09 06:43] VITALS: BP 143/62
[2021-06-09] MEDS: lamoTRIgine 25MG TAB PO SCH ×2 (08:15→20:14)
[2021-06-09] MEDS: FOLIC ACID 1 MG TAB PO SCH (08:15)
[2021-06-09] MEDS: MULTIVITAMINS/MINERALS THERAP 1 TAB PO SCH (08:15)
[2021-06-09] MEDS: CETIRIZINE (ZyrTEC) 10 MG TAB PO SCH (08:15)
[2021-06-09] MEDS: hydrOXYzine 50 MG TAB PO SCH ×2 (08:15→15:17)
[2021-06-09] MEDS: QUEtiapine FUMARATE 50MG TAB PO SCH (08:15)
[2021-06-09] MEDS: NICOTINE 21MG/24HR 1 EA TRANSDERMAL TD SCH (08:16)
[2021-06-09] MEDS: OLANZapine ORAL DISINTEGRATING TAB 5MG PO PRN (08:40)
[2021-06-09] MEDS: ACETAMINOPHEN TAB 650MG DOSE (2X325MG) PO PRN (08:40)
[2021-06-09] MEDS: cloNIDine 0.1MG TABLET PO SCH ×3 (08:42→20:16)
[2021-06-09] MEDS ORDERED: QUET100T2 PO (16:26)
[2021-06-09] MEDS ORDERED: TRAZ-257 PO (16:26)
[2021-06-09] MEDS ORDERED: CLONI1TA PO (16:26)
[2021-06-09] MEDS ORDERED: QUET50TA4 PO (16:26)
[2021-06-09] MEDS ORDERED: LAMI25TA PO (16:26)
[2021-06-09] MEDS ORDERED: NICO21PAT TD (16:26)
[2021-06-09] MEDS ORDERED: HYDR50TA70 PO ×2 (16:26)
[2021-06-09 16:32] VITALS: BP 138/62
[2021-06-09] MEDS: traZODone 100 MG TAB PO SCH (20:14)
[2021-06-09] MEDS: QUEtiapine FUMARATE 100 MG TAB PO SCH (20:14)
[2021-06-10 06:49] VITALS: BP 121/53
[2021-06-10] MEDS: NICOTINE 21MG/24HR 1 EA TRANSDERMAL TD SCH (08:09)
[2021-06-10 08:15] VITALS: BP 137/75
[2021-06-10] MEDS: CETIRIZINE (ZyrTEC) 10 MG TAB PO SCH (08:15)
[2021-06-10] MEDS: lamoTRIgine 25MG TAB PO SCH (08:15)
[2021-06-10] MEDS: FOLIC ACID 1 MG TAB PO SCH (08:15)
[2021-06-10] MEDS: cloNIDine 0.1MG TABLET PO SCH (08:15)
[2021-06-10] MEDS: QUEtiapine FUMARATE 50MG TAB PO SCH (08:16)
[2021-06-10] MEDS: MULTIVITAMINS/MINERALS THERAP 1 TAB PO SCH (08:16)
[2021-06-10] MEDS: hydrOXYzine 50 MG TAB PO SCH (08:16)
== END 2021-06-10 11:57 | disposition home or self-care (01) | DRG 753 ==
LOC: M ED 13:38 → M ED INP 18:50 → M PSY 23:27
PROVIDERS: ADMIT Psychiatry & Neurology Psychiatry; ATTEND Psychiatry & Neurology Psychiatry
DX: F31.9 Bipolar disorder, unspecified (principal); I10 Essential (primary) hypertension; F41.9 Anxiety disorder, unspecified; K21.9 Gastro-esophageal reflux disease without esophagitis; F12.90 Cannabis use, unspecified, uncomplicated; F17.200 Nicotine dependence, unspecified, uncomplicated; Z79.899 Other long term (current) drug therapy; Z91.018 Allergy to other foods; Z88.8 Allergy status to other drugs, medicaments and biological substances; J45.909 Unspecified asthma, uncomplicated; M54.59 Other low back pain

== ENCOUNTER → 2021-07-17 | Outpatient (CLI) | payer OTHER ==
[~2021-07-17] MED LIST changes: +CLON-412; +CLONI1TA PO; +DICY10CA13 PO; +HYDR50TA70 PO; +LAMO25TA4 PO; +NICO21PAT TD; +QUET100T2 PO; +SERO1TAB2 PO; +SERO50TA PO; +TRAZ-257 PO; +TRAZ1TAB10 PO; +VITA100054 PO; +VITA100093
== END ==
LOC: M WHC 12:43
PROVIDERS: ATTEND Physician Assistant Medical
DX: N63.21 Unspecified lump in the left breast, upper outer quadrant (principal)
CPT/HCPCS: 76642; 77066; G0279

== ENCOUNTER → 2021-12-11 | Outpatient (REF) | payer OTHER ==
[2021-12-11 17:20] LABS: BASO # 0.1 10^3/uL (0.0-0.2); BASO % 0.8 % (0.0-1.0); EOS # 0.3 10^3/uL (0.0-0.5); HEMATOCRIT 44.5 % (42.0-52.0); HEMOGLOBIN 14.3 g/dl (13.5-17.5); LYMPH # 2.5 10^3/uL (1.5-5.0); LYMPH % 28.8 % (24.0-44.0); MEAN CORPUSCULAR HEMOGLOBIN 26.9 pg (27.0-33.0); MEAN CORPUSCULAR HGB CONC 32.1 g/dl (32.0-36.5); MEAN CORPUSCULAR VOLUME 83.8 fl (80.0-96.0); MONO # 0.7 10^3/uL (0.0-0.8); MONO % 8.2 % (2.0-8.0); NEUTROPHILS # 5.2 10^3/uL (1.5-8.5); NEUTROPHILS % 58.7 % (36.0-66.0); PLATELET COUNT, AUTOMATED 286 10^3/uL (150-450); RED BLOOD COUNT 5.31 10^6/uL (4.30-6.10); WHITE BLOOD COUNT 8.8 10^3/uL (4.0-10.0)
[2021-12-11 18:26] LABS: ALBUMIN 3.9 GM/DL (3.2-5.2); ALT/SGPT 107 U/L (12-78); BILIRUBIN,TOTAL 0.6 MG/DL (0.2-1.0); BLOOD UREA NITROGEN 12 MG/DL (7-18); CALCIUM LEVEL 9.2 MG/DL (8.5-10.1); CARBON DIOXIDE LEVEL 26 MEQ/L (21-32); CHLORIDE LEVEL 100 MEQ/L (98-107); CHOLESTEROL LEVEL 265 MG/DL (<200); CHOLESTEROL RISK RATIO 7.571 (<5); CREATININE FOR GFR 1.04 MG/DL (0.70-1.30); GLOMERULAR FILTRATION RATE > 60.0 (>60); GLUCOSE, FASTING 212 MG/DL (70-100); HDL CHOLESTEROL 35 MG/DL (>40); LDL CHOLESTEROL 155 MG/DL (<100); NON-HDL-C 230 MG/DL; POTASSIUM SERUM 4.4 MEQ/L (3.5-5.1); SODIUM LEVEL 134 MEQ/L (136-145); TOTAL PROTEIN 7.7 GM/DL (6.4-8.2); TRIGLYCERIDES LEVEL 374 MG/DL (<150)
== END ==
LOC: M SFHCADAM 11:15
PROVIDERS: ATTEND Physician Assistant Medical
DX: I10 Essential (primary) hypertension (principal); E66.01 Morbid (severe) obesity due to excess calories; F33.1 Major depressive disorder, recurrent, moderate; K76.0 Fatty (change of) liver, not elsewhere classified

== ENCOUNTER → 2021-12-11 | Outpatient (CLI) | payer OTHER | LOC: M ADAMS 11:48 | PROVIDERS: ATTEND Physician Assistant Medical | DX: M54.2 Cervicalgia (principal) ==

== ENCOUNTER → 2022-12-09 | Outpatient (REF) | payer OTHER ==
[~2022-12-09] MED LIST changes: +DICY-61; +DICY-61 PO; -DICY10CA13; -DICY10CA13 PO
[2022-12-09 13:34] LABS: BASO # 0.1 10^3/uL (0.0-0.2); BASO % 0.6 % (0.0-1.0); EOS # 0.3 10^3/uL (0.0-0.5); EOS % 2.5 % (0.0-3.0); HEMATOCRIT 42.7 % (42.0-52.0); HEMOGLOBIN 13.8 g/dl (13.5-17.5); LYMPH % 27.8 % (24.0-44.0); MEAN CORPUSCULAR HEMOGLOBIN 27.1 pg (27.0-33.0); MEAN CORPUSCULAR HGB CONC 32.3 g/dl (32.0-36.5); MEAN CORPUSCULAR VOLUME 83.9 fl (80.0-96.0); MONO # 0.6 10^3/uL (0.0-0.8); MONO % 5.4 % (2.0-8.0); NEUTROPHILS # 6.8 10^3/uL (1.5-8.5); PLATELET COUNT, AUTOMATED 337 10^3/uL (150-450); RED BLOOD COUNT 5.09 10^6/uL (4.30-6.10); WHITE BLOOD COUNT 10.8 10^3/uL (4.0-10.0)
[2022-12-09 13:54] LABS: HEMOGLOBIN A1c 9.3 % (4.0-6.0)
[2022-12-09 14:02] LABS: CREATININE, URINE 80.5 MG/DL
[2022-12-09 14:03] LABS: MALB URINE SIEMENS < 3.0 MG/L; MAU/CREAT RATIO 3.7 MCG/MG (0.0-30.0)
[2022-12-09 14:07] LABS: THYROID STIMULATING HORMONE 1.086 uIU/ML (0.55-4.78)
[2022-12-09 14:10] LABS: TOTAL 25(OH) VITAMIN D 36.1 NG/ML (20.0-100.0)
[2022-12-09 14:11] LABS: ALKALINE PHOSPHATASE 81 U/L (46-116); ALT/SGPT 85 U/L (7.0-40); AST/SGOT 43 U/L (<34); BILIRUBIN,TOTAL 0.3 MG/DL (0.3-1.2); BLOOD UREA NITROGEN 12 MG/DL (9-23); CALCIUM LEVEL 9.7 MG/DL (8.5-10.1); CARBON DIOXIDE LEVEL 27 MMOL/L (20-31); CHLORIDE LEVEL 104 MMOL/L (98-107); CHOLESTEROL LEVEL 260 MG/DL (<200); CHOLESTEROL RISK RATIO 6.06 (<5); CREATININE FOR GFR 0.82 MG/DL (0.70-1.30); GLOMERULAR FILTRATION RATE > 60.0 (>60); GLUCOSE, FASTING 151 MG/DL (60-100); HDL CHOLESTEROL 42.9 MG/DL (>40); LDL CHOLESTEROL 162.9 MG/DL (<100); NON-HDL-C 217.1 MG/DL; POTASSIUM SERUM 4.5 MMOL/L (3.5-5.1); SODIUM LEVEL 139 MMOL/L (136-145); TRIGLYCERIDES LEVEL 271 MG/DL (<150)
== END ==
LOC: M SFHCADAM 09:43
PROVIDERS: ATTEND Physician Assistant Medical
DX: I10 Essential (primary) hypertension (principal); E66.01 Morbid (severe) obesity due to excess calories; F33.2 Major depressive disorder, recurrent severe without psychotic features; K76.0 Fatty (change of) liver, not elsewhere classified

== ENCOUNTER → 2023-03-04 | Outpatient (REF) | payer OTHER ==
[2023-03-04 15:16] LABS: ALBUMIN 4.1 G/DL (3.2-5.2); ALKALINE PHOSPHATASE 74 U/L (46-116); ALT/SGPT 92 U/L (7.0-40); AST/SGOT 48 U/L (<34); BILIRUBIN,TOTAL 0.3 MG/DL (0.3-1.2); BLOOD UREA NITROGEN 14 MG/DL (9-23); CALCIUM LEVEL 9.3 MG/DL (8.5-10.1); CARBON DIOXIDE LEVEL 28 MMOL/L (20-31); CHLORIDE LEVEL 103 MMOL/L (98-107); CHOLESTEROL LEVEL 183 MG/DL (<200); CHOLESTEROL RISK RATIO 4.12 (<5); GLOMERULAR FILTRATION RATE > 60.0 (>60); GLUCOSE, FASTING 88 MG/DL (60-100); HDL CHOLESTEROL 44.4 MG/DL (>40); LDL CHOLESTEROL 99.6 MG/DL (<100); NON-HDL-C 138.6 MG/DL; POTASSIUM SERUM 4.7 MMOL/L (3.5-5.1); SODIUM LEVEL 138 MMOL/L (136-145); TOTAL PROTEIN 7.1 G/DL (5.7-8.2); TRIGLYCERIDES LEVEL 195 MG/DL (<150)
== END ==
LOC: M SFHCADAM 11:09
PROVIDERS: ATTEND Physician Assistant Medical
DX: E11.65 Type 2 diabetes mellitus with hyperglycemia (principal); E78.2 Mixed hyperlipidemia

== ENCOUNTER → 2023-09-16 | Outpatient (REF) | payer OTHER ==
[2023-09-16 17:56] LABS: BASO # 0.1 10^3/uL (0.0-0.2); BASO % 0.4 % (0.0-1.0); EOS # 0.4 10^3/uL (0.0-0.5); EOS % 3.4 % (0.0-3.0); HEMATOCRIT 39.2 % (42.0-52.0); HEMOGLOBIN 12.8 g/dl (13.5-17.5); LYMPH # 2.6 10^3/uL (1.5-5.0); LYMPH % 22.3 % (24.0-44.0); MEAN CORPUSCULAR HEMOGLOBIN 27.8 pg (27.0-33.0); MEAN CORPUSCULAR HGB CONC 32.7 g/dl (32.0-36.5); MEAN CORPUSCULAR VOLUME 85.2 fl (80.0-96.0); MONO # 0.8 10^3/uL (0.0-0.8); MONO % 6.6 % (2.0-8.0); NEUTROPHILS # 7.8 10^3/uL (1.5-8.5); PLATELET COUNT, AUTOMATED 383 10^3/uL (150-450); WHITE BLOOD COUNT 11.6 10^3/uL (4.0-10.0)
[2023-09-16 18:27] LABS: ALBUMIN 3.8 G/DL (3.2-5.2); ALKALINE PHOSPHATASE 78 U/L (46-116); ALT/SGPT 60 U/L (7.0-40); AST/SGOT 26 U/L (<34); BILIRUBIN,TOTAL 0.4 MG/DL (0.3-1.2); BLOOD UREA NITROGEN 8 MG/DL (9-23); CALCIUM LEVEL 9.7 MG/DL (8.5-10.1); CARBON DIOXIDE LEVEL 28 MMOL/L (20-31); CHLORIDE LEVEL 104 MMOL/L (98-107); CHOLESTEROL LEVEL 151 MG/DL (<200); CHOLESTEROL RISK RATIO 3.56 (<5); CREATININE FOR GFR 0.79 MG/DL (0.70-1.30); GLOMERULAR FILTRATION RATE > 60.0 (>60); GLUCOSE, FASTING 152 MG/DL (60-100); HDL CHOLESTEROL 42.3 MG/DL (>40); LDL CHOLESTEROL 88.5 MG/DL (<100); NON-HDL-C 108.7 MG/DL; POTASSIUM SERUM 4.3 MMOL/L (3.5-5.1); SODIUM LEVEL 135 MMOL/L (136-145); TOTAL PROTEIN 6.7 G/DL (5.7-8.2); TRIGLYCERIDES LEVEL 101 MG/DL (<150)
[2023-09-16 18:29] LABS: THYROID STIMULATING HORMONE 1.041 uIU/ML (0.55-4.78)
[2023-09-16 18:31] LABS: HEMOGLOBIN A1c 6.2 % (4.0-6.0)
== END ==
LOC: M SFHCADAM 11:10
PROVIDERS: ATTEND Physician Assistant Medical
DX: E11.65 Type 2 diabetes mellitus with hyperglycemia (principal); E78.2 Mixed hyperlipidemia; I10 Essential (primary) hypertension

== ENCOUNTER → 2024-05-02 | Outpatient (REF) | payer OTHER ==
[2024-05-02 13:52] LABS: BASO % 0.4 % (0.0-1.0); EOS # 0.3 10^3/uL (0.0-0.5); EOS % 3.3 % (0.0-3.0); HEMATOCRIT 40.5 % (42.0-52.0); HEMOGLOBIN 13.3 g/dl (13.5-17.5); LYMPH # 3.3 10^3/uL (1.5-5.0); LYMPH % 38.4 % (24.0-44.0); MEAN CORPUSCULAR HEMOGLOBIN 28.5 pg (27.0-33.0); MEAN CORPUSCULAR HGB CONC 32.8 g/dl (32.0-36.5); MEAN CORPUSCULAR VOLUME 86.7 fl (80.0-96.0); MONO # 0.6 10^3/uL (0.0-0.8); MONO % 7.5 % (2.0-8.0); NEUTROPHILS # 4.3 10^3/uL (1.5-8.5); NEUTROPHILS % 50.2 % (36.0-66.0); PLATELET COUNT, AUTOMATED 361 10^3/uL (150-450); RED BLOOD COUNT 4.67 10^6/uL (4.30-6.10); WHITE BLOOD COUNT 8.5 10^3/uL (4.0-10.0)
[2024-05-02 13:53] LABS: ALBUMIN 3.9 G/DL (3.2-5.2); ALKALINE PHOSPHATASE 66 U/L (40-129); ALT/SGPT 43 U/L (7.0-40); AST/SGOT 22 U/L (<34); BILIRUBIN,TOTAL 0.2 MG/DL (0.3-1.2); BLOOD UREA NITROGEN 16 MG/DL (9-23); CALCIUM LEVEL 9.4 MG/DL (8.5-10.1); CARBON DIOXIDE LEVEL 29 MMOL/L (20-31); CHLORIDE LEVEL 105 MMOL/L (98-107); CHOLESTEROL LEVEL 161 MG/DL (<200); CHOLESTEROL RISK RATIO 4.54 (<5); CREATININE FOR GFR 0.95 MG/DL (0.70-1.30); GLOMERULAR FILTRATION RATE > 60.0 (>60); GLUCOSE, FASTING 122 MG/DL (60-100); HDL CHOLESTEROL 35.4 MG/DL (>40); LDL CHOLESTEROL 84.6 MG/DL (<100); NON-HDL-C 125.6 MG/DL; POTASSIUM SERUM 4.3 MMOL/L (3.5-5.1); SODIUM LEVEL 142 MMOL/L (136-145); TOTAL PROTEIN 6.9 G/DL (5.7-8.2); TRIGLYCERIDES LEVEL 205 MG/DL (<150)
[2024-05-02 13:55] LABS: THYROID STIMULATING HORMONE 1.481 uIU/ML (0.55-4.78); TOTAL 25(OH) VITAMIN D 45.7 NG/ML (20.0-100.0)
[2024-05-02 14:09] LABS: MALB URINE SIEMENS < 3.0 MG/L
[2024-05-02 14:26] LABS: HEMOGLOBIN A1c 5.9 % (4.0-6.0)
== END ==
LOC: M SFHCADAM 07:49
PROVIDERS: ATTEND Physician Assistant Medical
DX: E11.65 Type 2 diabetes mellitus with hyperglycemia (principal); E78.2 Mixed hyperlipidemia; E66.01 Morbid (severe) obesity due to excess calories

== ENCOUNTER → 2024-06-05 | Outpatient (CLI) | payer OTHER | LOC: M WHC 09:11 | PROVIDERS: ATTEND Physician Assistant Medical | DX: R76.0 Raised antibody titer (principal); K76.0 Fatty (change of) liver, not elsewhere classified ==

== ENCOUNTER → 2024-11-30 | Outpatient (CLI) | payer MEDICAID, OTHER ==
[~2024-11-30] MED LIST changes: +CHOL25CA2 PO; +LAMO-18 PO; -LAMO25TA4 PO; -VITA100054 PO
== END ==
LOC: M ADAMS 09:37
PROVIDERS: ATTEND Physician Assistant Medical
DX: M25.562 Pain in left knee (principal)

== ENCOUNTER → 2025-01-01 | Outpatient (CLI) | payer OTHER ==
[2025-01-01 18:40] LABS: BASO # 0.1 10^3/uL (0.0-0.2); BASO % 0.5 % (0.0-1.0); EOS # 0.2 10^3/uL (0.0-0.5); EOS % 2.0 % (0.0-3.0); LYMPH # 3.7 10^3/uL (1.5-5.0); LYMPH % 32.1 % (24.0-44.0); MONO # 0.8 10^3/uL (0.0-0.8); MONO % 6.6 % (2.0-8.0); NEUTROPHILS # 6.7 10^3/uL (1.5-8.5); NEUTROPHILS % 58.5 % (36.0-66.0); PLATELET COUNT, AUTOMATED 416 10^3/uL (150-450)
[2025-01-01 19:05] LABS: ALT/SGPT 23.0 U/L (7.0-40); AST/SGOT 19.0 U/L (<34); CALCIUM LEVEL 9.6 MG/DL (8.5-10.1); CARBON DIOXIDE LEVEL 26.0 MMOL/L (20-31); CHLORIDE LEVEL 101.0 MMOL/L (98-107); CREATININE FOR GFR 1.38 MG/DL (0.70-1.30); GLOMERULAR FILTRATION RATE 65.1 (>60); POTASSIUM SERUM 5.1 MMOL/L (3.5-5.1); SODIUM LEVEL 136.0 MMOL/L (136-145)
== END ==
LOC: M ADAMS 15:18
DX: J06.9 Acute upper respiratory infection, unspecified (principal)

== ENCOUNTER → 2025-01-01 | Outpatient (REF) | payer OTHER | LOC: M SFHCPLAZ 14:56 | DX: J06.9 Acute upper respiratory infection, unspecified (principal) ==

== ENCOUNTER → 2025-01-02 | Outpatient (REF) | payer OTHER ==
[~2025-01-02] MED LIST changes: -CHOL25CA2 PO; +D3 H10003 PO
== END ==
LOC: M SFHCPLAZ 12:29
DX: J20.9 Acute bronchitis, unspecified (principal)

== ENCOUNTER → 2025-02-26 | Outpatient (REF) | payer OTHER ==
[2025-02-26 13:24] LABS: BASO # 0.1 10^3/uL (0.0-0.2); BASO % 0.5 % (0.0-1.0); EOS # 0.2 10^3/uL (0.0-0.5); EOS % 1.9 % (0.0-3.0); LYMPH # 3.0 10^3/uL (1.5-5.0); LYMPH % 24.4 % (24.0-44.0); MONO # 0.7 10^3/uL (0.0-0.8); MONO % 5.6 % (2.0-8.0); NEUTROPHILS # 8.2 10^3/uL (1.5-8.5); NEUTROPHILS % 67.3 % (36.0-66.0); PLATELET COUNT, AUTOMATED 452 10^3/uL (150-450)
[2025-02-26 13:44] LABS: ESTIMATED AVERAGE GLUCOSE 111.0 MG/DL (60-110)
[2025-02-26 13:53] LABS: ALT/SGPT 41 U/L (7.0-40); AST/SGOT 26 U/L (<34); CALCIUM LEVEL 10.0 MG/DL (8.5-10.1); CARBON DIOXIDE LEVEL 26 MMOL/L (20-31); CHLORIDE LEVEL 105 MMOL/L (98-107); CHOLESTEROL LEVEL 148 MG/DL (<200); CHOLESTEROL RISK RATIO 3.66 (<5); CREATININE FOR GFR 1.03 MG/DL (0.70-1.30); GLOMERULAR FILTRATION RATE > 90.0 (>60); LDL CHOLESTEROL 88.0 MG/DL (<100); NON-HDL-C 107.6 MG/DL; POTASSIUM SERUM 4.4 MMOL/L (3.5-5.1); SODIUM LEVEL 141 MMOL/L (136-145); TOTAL 25(OH) VITAMIN D 58.3 NG/ML (20.0-100.0); TRIGLYCERIDES LEVEL 98 MG/DL (<150)
[2025-02-26 13:54] LABS: FREE T4 1.46 NG/DL (0.89-1.76)
== END ==
LOC: M SFHCADAM 09:43
PROVIDERS: ATTEND Physician Assistant Medical
DX: E11.65 Type 2 diabetes mellitus with hyperglycemia (principal); K76.0 Fatty (change of) liver, not elsewhere classified; F33.1 Major depressive disorder, recurrent, moderate; I10 Essential (primary) hypertension; E66.01 Morbid (severe) obesity due to excess calories; K21.9 Gastro-esophageal reflux disease without esophagitis